=== PATIENT | male | born 1930 | race Caucasian/White ===

== ENCOUNTER 2016-11-04 15:14 | Outpatient (CLI) ==
--- NOTE | 2016-11-04 16:06 | DI ---
EXAM: Lumbar spine three view with flexion and extension HISTORY: Lumbar facet arthropathy COMPARISON: None TECHNIQUE: Three lateral views lumbar spine were performed in neutral position and with flexion and extension FINDINGS: The vertebral bodies normal in height. No fracture visualized. Multilevel marginal oste ophyte formation. Multilevel intervertebral disc space narrowing, moderate to severe at L4-L5 and s evere at L5-S1. Advanced multilevel facet arthrosis. 3 mm retrolisthesis of L3 on L4, unchanged wi th flexion and extension. Atherosclerotic vascular calcification. IVC filter. Hip arthroplasty no stepan. 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 3 mm retrolisthe sis of L3 on L4. No segment instability.
== END 2016-11-04 15:15 | disposition home or self-care (01) ==
LOC: RAD 15:14
PROVIDERS: ATTEND Nurse Practitioner Family
DX: M12.88 Other specific arthropathies, not elsewhere classified, other specified site (principal)

== ENCOUNTER 2017-04-06 08:48 | Outpatient (CLI) ==
[2017-04-06 09:13] LABS: BASOPHILS % (AUTO) 0.6 % (0.0-3.0); EOSINOPHILS # (AUTO) 0.2 K/ul (0.0-0.7); EOSINOPHILS % (AUTO) 3.1 % (0.0-7.0); HEMATOCRIT 31.1 % (42.0-52.0); HEMOGLOBIN 10.6 g/dl (14.0-18.0); IMMATURE GRANULOCYTE % (AUTO) 0.2 % (0.0-5.0); LYMPHOCYTES # (AUTO) 1.5 K/uL (0.60-3.4); LYMPHOCYTES % (AUTO) 27.3 (10.0-50.0); MEAN CORPUSCULAR HEMOGLOBIN 32.2 pg (27.0-31.0); MEAN CORPUSCULAR HGB CONC 34.1 (31.8-35.4); MEAN CORPUSCULAR VOLUME 94.5 fl (80.0-94.0); MONOCYTES # (AUTO) 0.8 K/uL (0.4-2.0); MONOCYTES % (AUTO) 15.3 (0-10); NEUTROPHILS # (AUTO) 2.9 K/ul (2.0-6.9); NEUTROPHILS % (AUTO) 53.5; PLATELET COUNT 179 10^3/uL (140-440); RED BLOOD COUNT 3.29 10^6/ul (4.70-6.10); WHITE BLOOD COUNT 5.43 K/ul (4.2-10.2)
[2017-04-06 09:28] LABS: ALBUMIN 3.4 g/dL (3.4-5.0); BILIRUBIN,TOTAL 0.52 mg/dL (0.00-1.20); BUN/CREATININE RATIO 21.35; CALCIUM 11.5 mg/dL (8.2-10.2); CREATININE 2.06 mg/dL (0.60-1.10); TOTAL PROTEIN 6.8 g/dL (5.8-8.1)
--- NOTE | 2017-04-06 09:40 | CT ---
EXAM: CT of the abdomen pelvis without contrast History: Rectal bleeding. Technique: Multiplanar CT images through the abdomen pelvis were obtained without the administration of IV contrast Findings: Coronary calcifications. Subsegmental atelectasis seen within the lower lungs. No acute osseous abnormalities. Left hip arthroplasty hardware. Osteopenia. Degenerative changes of the spi ne which are severe in the lower lumbar spine. Cholelithiasis. Adrenal glands are unremarkable. No peripancreatic inflammation. IVC filter seen i n place. Atherosclerotic vascular calcifications. No obvious splenic or liver lesions identified wi thin limitations of a noncontrast study. No renal stones and no hydronephrosis. No bowel obstructio n. No bladder wall thickening. Prostate is not enlarged. Colonic diverticulosis. No free air. No ascites. The appendix is not dilated or inflamed. No perirectal inflammation. Impression: 1. No acute intra-abdominal or pelvic process. 2. Colonic diverticulosis. 3. Cholelithiasis. 4. Atherosclerotic vascular disease. 5. Coronary artery disease.
== END 2017-04-06 08:49 | disposition home or self-care (01) ==
LOC: RAD 08:48
PROVIDERS: ATTEND Internal Medicine
DX: K62.5 Hemorrhage of anus and rectum (principal); D64.9 Anemia, unspecified
CPT/HCPCS: 36415; 80053; 85025

== ENCOUNTER 2017-07-16 22:22 | Emergency (ER) ==
--- NOTE | 2017-07-16 22:38 | ED.PDOC ---
General ED Provider: Dr. JERROD COURTNEY Chief Complaint: Fall Stated Complaint: patient had a fall at the alf with injuries to the head, face, right shoulder, hips, right hand and eblows. states that the pain is tollorable Time Seen by Physician: 22:35 Information Source: Patient Exam Limitations: No limitations Primary Care Provider: MARIAH HARRISON Nursing and Triage Documentation Reviewed and Agree: Yes Reviewed sepsis parameters & appropriate labs ordered?: Yes System Inflammatory Response Syndrome: Not Applicable Sepsis Protocol: For patient's 13 years and over: Temp is 96.8 and below OR 101 and greater Pulse >90 BPM Resp >20/minute Acutely Altered Mental Status Are patient's symptoms suggestive of a new infection, such as: -Pneumonia -Skin, Soft Tissue -Endocarditis -UTI -Bone, Joint Infection -Implantable Device -Acute Abdominal Infection -Wound Infection -Meningitis -Blood Stream Catheter Infection -Unknown System Inflammatory Response Syndrome: Not Applicable Trauma/Injury Complaint Exam - Trauma Complaint/Exam Location of Pain or Injury: Reports: Face, Neck, RUE, LUE Mechanism of Injury: Reports: Fall Onset/Duration: 1 hour Symptoms Are: Still present Timing of Treatment: Immediate Initial Severity: Moderate Current Severity: Moderate Character: Reports: Aching Aggravating: Reports: Movement Associated Signs and Symptoms: Reports: Bruising. Denies: LOC, Confusion, Memory loss, Lethargy, Vomiting, Bleeding, Swelling, Extremity disuse, Painful respiration, Hoarseness, Dysphagia, Hemoptysis, Significant blood loss Nexus Low Risk Criteria: No post-midline CS tender, No evidence of intoxicat., No Altered LOC, No focal neuro deficit, No distracting injuries Glascow Coma Scale (see protocol): 15 Compartment Syndrome Risk Factors: Present: Pain Trauma Findings: Present: Neck tenderness, Neck spasm, Limited ROM (on the right hand ) Skin Findings: Present: Abrasion (with steri strips placed at the NH ) Differential Diagnoses: Abrasion, Contusions, Hematoma Review of Systems - Review Of Systems Constitutional: Reports: No symptoms Eyes: Reports: No symptoms Ears, Nose, Mouth, Throat: Reports: No symptoms Respiratory: Reports: No symptoms Cardiac: Reports: No symptoms. Denies: Chest pain GI: Reports: No symptoms : Reports: No symptoms Musculoskeletal: Reports: Back pain, Neck pain Skin: Reports: Bruising Neurological: Reports: Anxiety Endocrine: Reports: No symptoms Hematologic/Lymphatic: Reports: No symptoms All Other Systems: Reviewed and Negative Past Medical History - Past Medical History Endocrine: Reports: Dyslipidemia Cardiovascular: Reports: CAD, Hypertension, A-Fib Respiratory: Reports: PE Hematological: Reports: None Gastrointestinal: Reports: None Genitourinary: Reports: None Neuro/Psych: Reports: CVA Musculoskeletal: Reports: Arthritis, Back Pain Cancer: Reports: None Other Pertinent Past Medical History: Sleep APnea, hypoglycemia - Surgical History General Surgical History: Reports: CABG, Orthopedic (Left hip replacement), Other (TURP, vascular surgery) - Family History Family History: Reports: Unknown - Social History Smoking Status: Heavy tobacco smoker Hx Substance Use: No Lives: In Assisted Physical Exam - Physical Exam Appearance: Well-nourished Ill-appearing: Moderate Pain Distress: Mild Eyes: ANAI, EOMI, Conjunctiva clear Respiratory: Airway patent, Breath sounds clear, Breath sounds equal, Respirations nonlabored GI/: Soft, Nontender, No masses, Bowel sounds normal, No Organomegaly Musculoskeletal: No edema, No calf tenderness, Limited ROM (right shoulder and right eblow ) Skin: Warm, Dry Neurological: Cranial nerves intact, Alert, Oriented Psychiatric: Anxious Interpretation - Radiology Interpretation Radiology Interpretation By: Radiologist Radiology Results: Negative Exam Interpreted: CT Scan (head, cervical spine, chest abdomen and pelvis. ) Radiology Interpretation By: Radiologist Radiology Results: Negative Exam Interpreted: Other (bilateral elbow) Critical Care Note - Critical Care Note Total Time (mins): 0 Course - Course Orders, Labs, Meds: Orders Category Date Time Status Diphth,Pertuss(Acell),Tet Vac [Boostrix] MEDS 07/16/17 23:51 Discontinued 0.5 ml IM .ONCE ONE CT ABDOMEN/PELVIS WO CONTRAST Stat RADS 07/16/17 22:[address] CERVICAL SPINE W/O CONTRAST Stat RADS 07/16/17 22:[address] CHEST W/O CONTRAST Stat RADS 07/16/17 22:[address] HEAD W/O CONTRAST Stat RADS 07/16/17 22:[address] MAXILLOFACIAL W/O CONTRAST Stat RADS 07/16/17 22:36 Completed ELBOW, LEFT MIN 3 VIEWS Stat RADS 07/16/17 22:33 Completed ELBOW, RIGHT MIN 3 VIEWS Stat RADS 07/16/17 22:33 Completed HAND, RIGHT 3 VIEWS Stat RADS 07/16/17 22:33 Taken Medications Discontinued Medications Generic Name Dose Route Start Last Admin Trade Name Syed PRN Reason Stop Dose Admin Diphtheria/Pertussis/Tetanus Vacc 0.5 ml 07/16/17 23:51 07/16/17 23:56 Boostrix IM 07/16/17 23:52 0.5 ml .ONCE ONE Administration Vital Signs: Temp Pulse Resp BP Pulse Ox 07/16/17 22:23 100.3 F H 81 18 160/77 H 98 Departure - Departure Time of Disposition: 00:09 Disposition: HOME SELF-CARE Discharge Problem: Falls, Abrasion of skin Sprain of shoulder, right Qualifiers: Encounter type: initial encounter Shoulder sprain type: other part of shoulder region Qualified Code(s): S43.491A - Other sprain of right shoulder joint, initial encounter Elbow injury Qualifiers: Encounter type: initial encounter Laterality: left Qualified Code(s): S59.902A - Unspecified injury of left elbow, initial encounter Head injury Qualifiers: Encounter type: initial encounter Qualified Code(s): S09.90XA - Unspecified injury of head, initial encounter Instructions: Head Injury (ED), Tdap and Td Vaccines in Adults (ED), Shoulder Sprain (ED), Abrasion (ED) Condition: Stable Pt referred to PMD for follow-up: Yes IPMP verified?: No Additional Instructions: Take home pain medications as needed for pain Follow up with PCP in 3 days Allergies/Adverse Reactions: Allergies diazepam [From Valium] Adverse Reaction (Verified 07/16/17 22:48) hydrocodone Adverse Reaction (Verified 07/16/17 22:48) PAPER TAPE Adverse Reaction (Uncoded 07/16/17 22:48) Home Medications: Ambulatory Orders Amoxicillin 500 mg PO TID 07/16/17 Apixaban [Eliquis] 5 mg PO BID 07/16/17 Docusate Sodium 100 mg PO BID 07/16/17 Ferrous Sulfate 325 mg PO TID 07/16/17 Furosemide 20 mg PO DAILY 07/16/17 Metoprolol Tartrate 25 mg PO BID 07/16/17 Multivitamin [Multi-Vitamin Daily] 1 each PO DAILY 07/16/17 Pantoprazole Sodium 40 mg PO DAILY 07/16/17 Polyethylene Glycol 3350 [Miralax] 17 gm PO DAILY 07/16/17 Potassium Chloride [K-Tab ER] 10 meq PO DAILY 07/16/17 Pravastatin Sodium [Pravachol] 40 mg PO DAILY 07/16/17 Quetiapine Fumarate [Seroquel] 25 mg PO BEDTIME 07/16/17 Tramadol HCl 50 mg PO DIRECTED 07/16/17 Tramadol HCl 100 mg PO DAILY 07/16/17 Tramadol HCl [Ultram] 50 mg PO BEDTIME 07/16/17 Disposition Discussed With: Patient, Family
[2017-07-16 22:44] VITALS: BP 160/77; BMI 25.9
--- NOTE | 2017-07-16 23:25 | CT ---
EXAM: CT scan brain without contrast HISTORY: Fall COMPARISON: None. FINDINGS: Contiguous axial images obtained from the skull base to the convexities without contrast u tilizing 5-mm collimation. Sagittal and coronal reconstructions were imaged and reviewed.. The vent ricles and CSF spaces are prominent compatible with age appropriate atrophy. There is moderate periv entricular hypodensity noted compatible with chronic microvascular disease. There is a remote lacuna r infarct within the right caudate head. Atherosclerotic changes are seen involving the bilateral ve rtebral and cavernous internal carotid arteries. There is opacification of the right maxillary sinus . Mastoid air cells are clear. The calvarium is intact. IMPRESSION: Age appropriate atrophy with chronic microvascular disease. ASVD. Benign sinus disease.
--- NOTE | 2017-07-16 23:28 | CT ---
EXAM: CT scan facial bones HISTORY: Fall COMPARISON: None. FINDINGS: Contiguous axial images obtained through the facial bones without contrast utilizing 3-mm collimation. Sagittal and coronal reconstructions were imaged and reviewed.. The orbital structures are intact. The right maxillary sinus is opacified. There is no acute fracture or bony abnormality .. The mandible and maxilla are edentulous. There is no evidence of a mandibular fracture . IMPRESSION: No acute findings.
[2017-07-16 23:29] VITALS: TEMP 100.3
--- NOTE | 2017-07-16 23:30 | CT ---
EXAM: CT cervical spine without intravenous contrast 07/16/2017. Sagittal and coronal reformatted i mages obtained HISTORY: Fall. Neck pain COMPARISON: None. FINDINGS: Normal anatomic alignment is maintained. Vertebral bodies appear intact without fracture. The facet joints align normally. The prevertebral soft tissues appear within normal limits. Multilevel chronic degenerative disc disease throughout the cervical spine. There is no evidence of acute fracture or subluxation at any level. IMPRESSION: Chronic degenerative changes of the cervical spine. No acute post traumatic osseous abn ormality.
--- NOTE | 2017-07-16 23:34 | CT ---
EXAM: CT scan thorax without contrast HISTORY: Fall COMPARISON: None. FINDINGS: Contiguous axial images obtained through the thorax without contrast utilizing 5-mm collim ation. Sagittal and coronal reconstructions were imaged reviewed.. The thoracic inlet is unremarkab le. The ascending aorta is ectatic measuring 3.8 cm. Sternal wire sutures noted from previous CABG. Heart is normal in size with left atrial prominence. There is no pericardial effusion.. There is a trace left pleural effusion with bibasilar atelectasis.. There is thickening of the lateral aspect of the major fissure superiorly on the right. There is minimal ground-glass opacity within the left upper lobe which may be related to atelectasis or contusion.. There are old healed right-sided rib fractures. Multiple gallstones are seen within the gallbladder.. Moderate degenerative changes are s een within the thoracic spine. There is mild thoracic dextroscoliosis. IMPRESSION: Trace left pleural effusion with bibasilar atelectasis and ground-glass opacity left upper lobe.. Prior mediastinotomy. Ectatic ascending aorta. Cholelithiasis
--- NOTE | 2017-07-16 23:35 | DI ---
EXAM: Right elbow three views HISTORY: Trauma COMPARISON: None. FINDINGS: There is no acute fracture or joint effusion.. Mild degenerative changes are noted about the coronoid process. IMPRESSION: No acute findings.
--- NOTE | 2017-07-16 23:36 | DI ---
EXAM: Left elbow three views HISTORY: Trauma COMPARISON: None. FINDINGS: There is an olecranon spur. There is no acute fracture or joint effusion. IMPRESSION: No acute findings.
--- NOTE | 2017-07-16 23:39 | CT ---
EXAM: CT abdomen pelvis without intravenous contrast 07/16/2017. Sagittal and coronal reformatted i mages obtained HISTORY: Fall. Hip pain COMPARISON: 04/06/2017 FINDINGS: The liver and gallbladder show no acute abnormality. There are multiple gallstones. The adrenal glands and kidneys show no acute process. No hydronephrosis. The spleen and pancreas show no acute abnormality. No bowel obstruction. Atherosclerotic vascular disease. Inferior vena cava filter is in place. Unremarkable urinary bladder. Streak artifacts secondary to left hip prosthesis partially obscures the pelvis. No acute osseous abnormality. Left arthroplasty well positioned. Bony fragments adjacent to the left hip appear chronic and stable. The right hip appears intact. IMPRESSION: 1. Gallstones. 2. Severe atherosclerotic vascular disease. 3. Inferior vena cava filter is in place. 4. Chronic degenerative disc disease. Severe spinal and neural foraminal narrowing at L4-L5. 5. Left hip arthroplasty is in place. No acute fracture identified.
[2017-07-16] MEDS ORDERED: BOOSTRIX IM ONE (23:51)
--- NOTE | 2017-07-17 07:31 | DI ---
EXAM: Right hand three views HISTORY: Pain after trauma. FINDINGS: No comparison. Bones are demineralized which limits this exam. No displaced fracture is id entified. There is diffuse mild to moderate arthropathy probably most apparent at the first carpal-m etacarpal joint. Joints are intact. No dislocation or subluxation. Soft tissue mass is suggested l ateral to the distal first metacarpal which may be related to the arthropathy and measures about 1.4 cm. IMPRESSION: No acute findings.
== END 2017-07-17 00:42 | disposition home or self-care (01) ==
LOC: ED 22:22
DX: S43.491A Other sprain of right shoulder joint, initial encounter (principal); S59.902A Unspecified injury of left elbow, initial encounter; S09.90XA Unspecified injury of head, initial encounter; S69.91XA Unspecified injury of right wrist, hand and finger(s), initial encounter; S79.912A Unspecified injury of left hip, initial encounter; S79.911A Unspecified injury of right hip, initial encounter; M54.2 Cervicalgia; M54.9 Dorsalgia, unspecified; W19.XXXA Unspecified fall, initial encounter; Y92.129 Unspecified place in nursing home as the place of occurrence of the external cause
CPT/HCPCS: 90471; 90715; 99283

== ENCOUNTER 2017-11-24 14:33 | Outpatient (CLI) ==
--- NOTE | 2017-11-24 15:58 | US ---
EXAM: Bilateral carotid artery Doppler History: Carotid stenosis. Technique: Multiple sonographic images through the bilateral internal carotid arteries were obtained . Color duplex Doppler was used to interrogate vascular flow. Findings: The right ICA peak systolic velocity is within normal limits measuring 70 cm/sec. The right ICA/cca P SV ratio is upper limits of normal at 1.9. Right vertebral artery was not seen. Price scale images d emonstrate mild to moderate plaque buildup within the right internal carotid artery. The right inter nal carotid artery is tortuous. The left ICA peak systolic velocity is moderately elevated measuring 140 cm/sec. The left ICA/cca PS V ratio is moderately increased at 2.3. The left vertebral artery is patent and demonstrates antegra de flow. Price scale images demonstrate moderate heterogeneous plaque buildup. Impression: 1. 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 2. No significant hemodynamic stenosis of the right internal carotid artery.
== END 2017-11-24 14:34 | disposition home or self-care (01) ==
LOC: RAD 14:33
PROVIDERS: ATTEND Internal Medicine
DX: I65.23 Occlusion and stenosis of bilateral carotid arteries (principal)

== ENCOUNTER 2018-11-20 12:50 | Outpatient (CLI) ==
--- NOTE | 2018-11-20 15:25 | US ---
EXAM: Bilateral carotid artery Doppler History: Dizziness. Comparison: Carotid Doppler 11/24/2017 Technique: Multiple sonographic images through the bilateral internal carotid arteries were obtained . Color duplex Doppler was used to interrogate vascular flow. Findings: The right ICA peak systolic velocity is within normal limits measuring 59 cm/sec. The right ICA/cca PSV ratio is normal at 0.90. The right vertebral artery is patent and demonstrates antegrade flow. Price scale images demonstrate mild to moderate plaque buildup within the right internal carotid arter y. The left ICA peak systolic velocity is moderately elevated measuring 142 cm/sec similar to the prior study. The left ICA/cca PSV ratio is moderately increased at 2.0. The left vertebral artery is kaufman nt and demonstrates antegrade flow. Price scale images demonstrate moderate plaque buildup within the left internal carotid artery. Evaluation was difficult due to shadowing calcific plaque. Impression: 1. 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 2. No significant hemodynamic stenosis of the right internal carotid artery. 3. Evaluation was difficult due to shadowing calcific plaque. Consider correlation with a CTA of th e neck for more accurate measurements.
== END 2018-11-20 12:51 | disposition home or self-care (01) ==
LOC: RAD 12:50
PROVIDERS: ATTEND Internal Medicine
DX: R42 Dizziness and giddiness (principal)

== ENCOUNTER 2019-08-06 | Inpatient (IN) ==
--- NOTE | 2019-08-06 00:30 | CT ---
EXAM: CT brain without contrast HISTORY: Fall TECHNIQUE: CT of the brain without intravenous contrast FINDINGS: There is no acute hemorrhage midline shift or mass effect. No hydrocephalus or abnormal e xtra-axial fluid collection. Generalized involutional atrophy, moderate. Chronic microvascular henao ges of the white matter tracts, moderate. Prior right caudate small vessel lacunar infarct. The bon y cranium appears normal. Complete opacification of the right maxillary sinus. Remainder of the vis ualized paranasal sinuses are clear. Soft tissues without significant abnormality. IMPRESSION: 1. Chronic changes as described. No acute intracranial abnormality is seen.
--- NOTE | 2019-08-06 00:43 | CT ---
EXAM: CT scan cervical spine HISTORY: Fall COMPARISON: CT scan cervical spine 07/16/2017 FINDINGS: Contiguous axial images obtained through the cervical spine utilizing 2-mm collimation. S agittal and coronal reconstructions were imaged and reviewed.. There is 2.1 mm anterolisthesis C4/C5 . There is 3.5 mm anterolisthesis C7/T1 the. There is multilevel degenerative disc disease.. There is no acute fracture or listhesis. There is facet arthropathy with multilevel central canal and fora mckayla stenosis. IMPRESSION: No acute findings.
[2019-08-06 00:44] LABS: HEMATOCRIT 45.1 % (42.0-52.0)
--- NOTE | 2019-08-06 00:44 | CT ---
Exam: CT of the chest without contrast History: Fall, dyspnea Technique: [address] of the chest without contrast FINDINGS: Small bilateral pleural effusions, left greater than right. There is no pneumothorax. No mediastinal lymph node enlargement. Atherosclerotic calcification of the aorta. Maximum thoracic a ryan diameter 3.9 cm in the ascending segment. Prior mediastinotomy. No acute chest wall abnormalit y. Prior healed rib fractures on the right. No acute findings of the upper abdomen. Distended gall bladder with cholelithiasis noted. Possible cystic duct calculi as well. Inferior vena cava filter in place. Impression: 1. Small pleural effusions are nonspecific 2. No acute post traumatic change of the chest is seen 3. Distended gallbladder with cholelithiasis 4. Ascending thoracic aorta 3.9 cm
--- NOTE | 2019-08-06 00:46 | CT ---
EXAM: CT scan facial bones HISTORY: Trauma COMPARISON: None. FINDINGS: Contiguous axial images obtained the facial bones utilizing 3-mm collimation. Sagittal an d coronal reconstructions were imaged and reviewed. The orbital structures are intact. There is opa cification of the right maxillary sinus. Atherosclerotic changes are seen involving the cavernous in ternal carotid arteries. There is no acute fracture or bony abnormality. The mandible is intact. T he mandible and maxilla are edentulous. IMPRESSION: No acute findings
--- NOTE | 2019-08-06 01:15 | ED.PDOC ---
General ED Provider: Dr. DOTTY BROWN Chief Complaint: Fall Stated Complaint: he fell at home due to fact his legs are swollen and he is sob Time Seen by Physician: 01:15 Mode of Arrival: Ambulance Information Source: Patient Primary Care Provider: MARIAH CHOPRA Nursing and Triage Documentation Reviewed and Agree: Yes Does patient meet sepsis criteria?: No System Inflammatory Response Syndrome: Not Applicable Sepsis Protocol: For patient's 13 years and over: Temp is 96.8 and below OR 101 and greater Pulse >90 BPM Resp >20/minute Acutely Altered Mental Status Are patient's symptoms suggestive of a new infection, such as: -Pneumonia -Skin, Soft Tissue -Endocarditis -UTI -Bone, Joint Infection -Implantable Device -Acute Abdominal Infection -Wound Infection -Meningitis -Blood Stream Catheter Infection -Unknown Respiratory Complaint Exam Respiratory Complaint/Exam Onset/Duration: one week Symptoms Are: Still present Initial Severity: Mild Current Severity: Mild Character: Reports Non-productive cough Aggravating: Reports URI Alleviating: Reports None Associated Signs and Symptoms: Reports Edema Home Oxygen Use: No Recent Stress Test: No Recent Echo/LV Function: No Current Antibiotic Use: No Current Asthma Medication Use: No Respiratory Distress: None Inadequate Respiratory Effort: No Dysphagia Present: No Stridor Present: No JVD Present: No Accessory Muscle Use: No Retractions: Not Present Diminished Breath Sounds: No Sinus Tenderness: None Grunting Respirations: No Kussmaul Respirations: No Differential Diagnoses: Pulmonary Edema Non-Traumatic Chest Pain Syncope: EKG Performed Review of Systems Review Of Systems Constitutional: Reports No symptoms Eyes: Reports No symptoms Ears, Nose, Mouth, Throat: Reports No symptoms Respiratory: Reports Short of air Cardiac: Reports No symptoms and Irregular heart rate GI: Reports No symptoms : Reports No symptoms Musculoskeletal: Reports No symptoms Skin: Reports No symptoms Neurological: Reports No symptoms Endocrine: Reports No symptoms Hematologic/Lymphatic: Reports No symptoms All Other Systems: Reviewed and Negative [facility] Social History Smoking and tobacco status: Former smoker Physical Exam Physical Exam Appearance: Reports Well-appearing Ill-appearing: None Pain Distress: None Eyes: Reports NAAI, EOMI and Conjunctiva clear ENT: Reports Ears normal, Nose normal and Oropharynx normal Neck: Supple Respiratory: Reports Airway patent, Breath sounds clear and Breath sounds equal Cardiovascular: Reports Pulses normal and Irregular rhythm GI/: Reports Soft, Nontender and No masses Musculoskeletal: Reports Normal strength, ROM intact and Edema Skin: Reports Warm, Dry and Normal color Neurological: Reports Sensation intact, Motor intact, Reflexes intact, Cranial nerves intact, Alert and Oriented Psychiatric: Reports Affect appropriate, Mood appropriate and Anxious Interpretation Radiology Interpretation Radiology Interpretation By: Radiologist Radiology Results: Positive Exam Interpreted: CT Scan EKG Interpretation Time of EKG #1: 01:13 Rate: Normal Rhythm: Sinus Ectopy: None [place]: NL ST Segment: Normal Interpretation: atrial fib Physician Notification Case Discussed Physician Notified: dr chopra Time of Notification: 01:14 Critical Care Note Critical Care Note Total Time (mins): 0 Course Course Hematology/Chemistry: 08/06/19 00:40 08/06/19 00:40 Orders, Labs, Meds: Lab Review 08/06/19 08/06/19 00:40 00:40 WBC 4.29 RBC 4.32 L Hgb 14.2 Hct 45.1 MCV 104.4 H MCH 32.9 H MCHC 31.5 L RDW Coeff of Domitila 13.6 Plt Count 86 L Immature Gran % (Auto) 0.2 Neut % (Auto) 53.2 Lymph % (Auto) 28.7 Graham % (Auto) 14.9 H Eos % (Auto) 2.1 Baso % (Auto) 0.9 Immature Gran # (Auto) 0.0 Neut # (Auto) 2.3 Lymph # (Auto) 1.2 Graham # (Auto) 0.6 Eos # (Auto) 0.1 Baso # (Auto) 0.0 Sodium 142.4 Potassium 4.54 Chloride 103.6 Carbon Dioxide 32.3 H Anion Gap 11.04 BUN 28.6 H Creatinine 1.50 H Estimated GFR (MDRD) 44.00 BUN/Creatinine Ratio 19.06 Glucose 120.2 H Calcium 11.44 H Total Bilirubin 0.89 AST 36.7 ALT 15.7 Alkaline Phosphatase 154.4 H NT-Pro-B Natriuret Pep Pending Total Protein 7.60 Albumin 4.13 Globulin 3.47 Albumin/Globulin Ratio 1.19 TSH Pending Orders Category Date Time Status ABG DRAW REQUEST Stat CARDIO 08/06/19 00:57 Ordered EKG-(ED ONLY) Stat CARDIO 08/06/19 00:04 Completed ED ROOMING HOUSE OPERATOR APPLIED .ONCE EMERGENCY 08/06/19 00:04 Active ABG Stat LAB 08/06/19 00:57 Ordered CBC W/ AUTO DIFF Stat LAB 08/06/19 00:40 Completed COMPREHENSIVE METABOLIC PANEL Stat LAB 08/06/19 00:40 Results NT-PROBNP Stat LAB 08/06/19 00:40 Results THYROID STIMULATING HORMONE Stat LAB 08/06/19 00:[address] CERVICAL SPINE W/O CONTRAST Stat RADS 08/06/19 00:[address] CHEST W/O CONTRAST Stat RADS 08/06/19 00:[address] HEAD W/O CONTRAST Stat RADS 08/06/19 00:[address] MAXILLOFACIAL W/O CONTRAST Stat RADS 08/06/19 00:21 Completed Vital Signs: Temp Pulse Resp BP Pulse Ox 08/06/19 00:35 97.4 F L 89 20 191/101 H 94 L Discharge Plan Discharge Patient Disposition: ADMITTED INPATIENT Discharge Problem: Acute respiratory failure Prescriptions: No Action multivitamin [Daily Multi-Vitamin] 1 EACH tablet 1 ea PO DAILY RF: 0 quetiapine [Seroquel] 25 MG tablet 25 mg PO BEDTIME RF: 0 polyethylene glycol 3350 [Miralax] 17 GM powder in packet 17 g PO DAILY RF: 0 pravastatin [Pravachol] 40 MG tablet 40 mg PO BEDTIME RF: 0 tramadol 50 MG tablet 50 mg PO QID RF: 0 ferrous sulfate 325 MG tablet 325 mg PO DAILY RF: 0 docusate sodium 100 MG capsule 100 mg PO DAILY RF: 0 furosemide 20 MG tablet 20 mg PO DAILY RF: 0 metoprolol tartrate 25 MG tablet 25 mg PO BID RF: 0 Eliquis 5 MG tablet 5 mg PO BID RF: 0 potassium chloride [Klor-Con M20] 20 mEq Tablet,Er Particles/Crystals 20 meq PO DAILY RF: 0 omeprazole 20 mg Tablet,Delayed Release (Dr/Ec) 20 mg PO DAILY RF: 0 ED Provider: DOTTY BROWN Condition: Fair
[2019-08-06] MEDS ORDERED: LASIX IVP STA (01:23)
[2019-08-06 02:42] VITALS: BMI 24.6
[2019-08-06 05:34] LABS: HEMATOCRIT 44.8 % (42.0-52.0)
[2019-08-06] MEDS: LASIX IVP SCH (07:13)
[2019-08-06] MEDS: PRILOSEC PO SCH (07:14)
[2019-08-06] MEDS ORDERED: NON-FORMULARY MEDICATION (Ferrous Sulfate 325 MG) PO SCH (09:00)
--- NOTE | 2019-08-06 09:15 | PCM.PROG ---
Attending Provider: ATTENDING PROVIDER: Dr. MARIAH HARRISON This patient is seen with Simin Prince, Nurse Practitioner. DATE OF SERVICE: 08/06/19 SUBJECTIVE: This 88 year old /WHITE M was hospitalized 08/06/19. The patient is resting comfortably. Heart rate into the 40s while sleeping, asymptomatic. He has 1800cc out since receiving IV Lasix in ER. REVIEW OF SYSTEMS: CONSTITUTIONAL: No night sweats. No fatigue, malaise, lethargy. No fever or chills. Weakness. HEENT: Eyes: No visual changes. No eye pain. No eye discharge. ENT: No runny nose. No epistaxis. No sinus pain. No odynophagia. No congestion. RESPIRATORY: No cough, no congestion. No hemoptysis. No shortness of breath. CARDIOVASCULAR: No angina symptoms. No CHF symptoms. No atypical chest pain for CAD. No palpitations. No orthopnea.. GASTROINTESTINAL: No abdominal pain. No nausea or vomiting. No diarrhea or constipation. No hematemesis. No hematochezia. GENITOURINARY: No urgency. No frequency. No dysuria. No hematuria. No obstructive symptoms. No discharge. No pain. No significant abnormal bleeding. MUSCULOSKELETAL: No musculoskeletal pain; no joint swelling. NEUROLOGICAL: Awake, alert, confused. No headache. No neck pain. No syncope. No seizures. No dizziness. PSYCHIATRIC: Not anxious. No depression. No suicidal thoughts. No homicidal thoughts. SKIN: No rash. No lesions. No wounds. leg edema. ENDOCRINE: No unexplained weight loss. No weight gain. HEMATOLOGIC/LYMPHATIC: No anemia. No purpura. No petechiae. No prolonged or excessive bleeding. No palpable lymph nodes. PHYSICAL EXAMINATION: GENERAL: The patient is awake, alert and oriented, lying in bed in no distress. VITAL SIGNS: Temperature 97.7 F, Pulse 68, Respiratory Rate 20, BP 192/91, Pulse Ox 98% HEENT: Head normocephalic, atraumatic. Eyes: Extraocular muscles are intact. Pupils are equal, round and reactive to light and accommodation. Ears: No lesions. Nose appeared normal. Throat: No exudate or erythema. NECK: Supple. No JVD, no carotid bruit. No lymphadenopathy or thyromegaly. LUNGS: Diminished breath sounds. Clear to auscultation. Percussion note normal. Chest symmetrical. HEART: S1, S2, no S3. No murmurs. No cyanosis or clubbing. No ascites. Pulses: Dorsalis pedis and posterior tibial pulses +1 to +2 both sides. ABDOMEN: Soft. Non-tender. Bowel sounds active. No CVA tenderness. No mass felt. EXTREMITIES: +2 bilateral lower extremity edema. Full range of motion of all extremities, equal. NEUROLOGIC: No focal deficit. Cranial nerves II through XII are grossly intact. No headache, no double vision or headache. SKIN: Not dry. Intact. Turgor-normal. LYMPHATIC: No palpable lymph nodes/no lymphedema. MUSCULOSKELETAL: Normal joints with no swelling. Muscle tone is normal. LAB REVIEW: 08/06/19 04:46 08/06/19 04:46 08/06/19 04:46: Sodium 143.6, Potassium 3.71, Chloride 102.5, Carbon Dioxide 33.1 H, Anion Gap 11.71, BUN 27.7 H, Creatinine 1.45 H, Estimated GFR (MDRD) 46.00, BUN/Creatinine Ratio 19.10, Glucose 116.6 H, Calcium 11.43 H, Total Bilirubin 0.83, AST 31.4, ALT 16.6, Alkaline Phosphatase 145.0 H, Total Protein 7.61, Albumin 4.16, Globulin 3.45, Albumin/Globulin Ratio 1.20 08/06/19 04:46: WBC 5.11, RBC 4.32 L, Hgb 14.2, Hct 44.8, MCV 103.7 H, MCH 32.9 H, MCHC 31.7 L, RDW Coeff of Domitila 13.6, Plt Count 97 L, Immature Gran % (Auto) 0.2, Neut % (Auto) 55.9, Lymph % (Auto) 28.0, Oliver % (Auto) 13.9 H, Eos % (Auto) 1.4, Baso % (Auto) 0.6, Immature Gran # (Auto) 0.0, Neut # (Auto) 2.9, Lymph # (Auto) 1.4, Oliver # (Auto) 0.7, Eos # (Auto) 0.1, Baso # (Auto) 0.0 08/06/19 00:57: Puncture Site Rrad, O2 Saturation 88.0 L, ABG pH 7.418, ABG pCO2 46.0 H, ABG pO2 54.0 L*, ABG HCO3 29.7 H, ABG Total CO2 31 H, ABG Base Excess 5 H, Clement Test +, FiO2 % 21.0 08/06/19 00:40: Sodium 142.4, Potassium 4.54, Chloride 103.6, Carbon Dioxide 32.3 H, Anion Gap 11.04, BUN 28.6 H, Creatinine 1.50 H, Estimated GFR (MDRD) 44.00, BUN/Creatinine Ratio 19.06, Glucose 120.2 H, Calcium 11.44 H, Total Bilirubin 0.89, AST 36.7, ALT 15.7, Alkaline Phosphatase 154.4 H, NT-Pro-B Natriuret Pep 70608.000 H, Total Protein 7.60, Albumin 4.13, Globulin 3.47, Albumin/Globulin Ratio 1.19, TSH 2.330 08/06/19 00:40: WBC 4.29, RBC 4.32 L, Hgb 14.2, Hct 45.1, MCV 104.4 H, MCH 32.9 H, MCHC 31.5 L, RDW Coeff of Domitila 13.6, Plt Count 86 L, Immature Gran % (Auto) 0.2, Neut % (Auto) 53.2, Lymph % (Auto) 28.7, Oliver % (Auto) 14.9 H, Eos % (Auto) 2.1, Baso % (Auto) 0.9, Immature Gran # (Auto) 0.0, Neut # (Auto) 2.3, Lymph # (Auto) 1.2, Oliver # (Auto) 0.6, Eos # (Auto) 0.1, Baso # (Auto) 0.0 ASSESSMENT: Please see below. 1. Acute respiratory failure 2. Acute CHF 3. History of atrial fibrillation 4. Chronic kidney disease 5. Dementia 6. Recent fall PLAN: 1. IV Lasix 2. Losartan 50mg BID 3. Will reconcile medications. . Plan and coordination of the patient's care discussed in the presence of Mechanical Engineering Technologist and nurse. SCRIBED BY: LYNDSEY RUIZ Continuity Writer scribed while in presence of service performed by Dr. Harrison/Simin rPince APRN on 08/06/19 ([id number])
[2019-08-06] MEDS: ULTRAM PO SCH ×4 (10:30→22:15)
[2019-08-06] MEDS: COLACE PO SCH (10:31)
[2019-08-06] MEDS: ELIQUIS PO SCH ×2 (10:32→22:15)
[2019-08-06] MEDS: FERROUS SULFATE PO SCH (10:34)
[2019-08-06] MEDS: K-DUR PO SCH (10:35)
[2019-08-06] MEDS: COZAAR PO SCH ×2 (10:35→22:16)
[2019-08-06] MEDS: MIRALAX PO SCH (10:36)
[2019-08-06] MEDS: LOPRESSOR PO SCH ×2 (10:37→23:01)
[2019-08-06] MEDS ORDERED: NORVASC PO STA (16:32)
[2019-08-06] MEDS: SEROQUEL PO SCH (22:15)
[2019-08-06] MEDS: PRAVACHOL PO SCH (22:15)
[2019-08-07 04:43] LABS: HEMATOCRIT 42.9 % (42.0-52.0)
[2019-08-07] MEDS: LASIX IVP SCH (05:47)
[2019-08-07] MEDS: PRILOSEC PO SCH (05:48)
[2019-08-07] MEDS: LOPRESSOR PO SCH ×2 (08:58→20:59)
[2019-08-07] MEDS: MIRALAX PO SCH (08:59)
[2019-08-07] MEDS: K-DUR PO SCH (09:04)
[2019-08-07] MEDS: ULTRAM PO SCH ×4 (09:04→20:58)
[2019-08-07] MEDS: COLACE PO SCH (09:04)
[2019-08-07] MEDS: FERROUS SULFATE PO SCH (09:04)
[2019-08-07] MEDS: ELIQUIS PO SCH ×2 (09:05→20:59)
[2019-08-07] MEDS: COZAAR PO SCH ×2 (09:05→20:58)
--- NOTE | 2019-08-07 09:11 | HP ---
DATE OF SERVICE: 08/06/19 HISTORY OF PRESENT ILLNESS: This is an 88-year-old male who presented to the ER after falling at home. He has been having worsening leg edema with shortness of breath and increased weakness. PAST MEDICAL HISTORY: Falls Generalized weakness Anemia Herpes Zoster Forgetfulness Bilateral pulmonary embolism Coronary artery disease Hypertension Chronic kidney disease, Stage 3 Sleep apnea with CPAP Leg edema Osteoarthritis of the knees Atrial fibrillation B12 deficiency Hypertension PAST SURGICAL HISTORY: Coronary artery bypass graft Left total knee repair REVIEW OF SYSTEMS: CONSTITUTIONAL: Weakness. No night sweats. No fatigue, malaise, lethargy. No fever or chills. HEENT: Eyes: No visual changes. No eye pain. No eye discharge. ENT: No runny nose. No epistaxis. No sinus pain. No sore throat. No odynophagia. No ear pain. No congestion. RESPIRATORY: No cough, no congestion. No hemoptysis. Positive for shortness of breath. CARDIOVASCULAR: No angina symptoms. No CHF symptoms. No atypical chest pain for CAD. No palpitations. No PND. No orthopnea. GASTROINTESTINAL: No abdominal pain. No nausea or vomiting. No diarrhea or constipation. No hematemesis. No hematochezia. GENITOURINARY: No urgency. No frequency. No dysuria. No hematuria. No obstructive symptoms. No discharge. No pain. No significant abnormal bleeding. MUSCULOSKELETAL: Leg swelling. NEUROLOGICAL: Confusion as usual. No headache. No neck pain. No syncope. No seizures. No dizziness. PSYCHIATRIC: Not anxious. No depression. No suicidal thoughts. No homicidal thoughts. SKIN: No rash. No lesions. No wounds. ENDOCRINE: No unexplained weight loss. No weight gain. HEMATOLOGIC/LYMPHATIC: No anemia. No purpura. No petechiae. No prolonged or excessive bleeding. No palpable lymph nodes. PERSONAL/FAMILY/SOCIAL HISTORY: He is and lives with his . He is a nonsmoker. MEDICATIONS: (HOME) Seroquel 25 mg p.o. bedtime Pravachol 40 mg p.o. bedtime Miralax 17 gm p.o. daily Metoprolol 25 mg p.o. b.i.d. Furosemide 20 mg p.o. daily Ferrous Sulfate 325 mg p.o. daily Docusate Sodium 100 mg p.o. daily Tramadol 50 mg p.o. q.i.d. Multivitamin one each p.o. daily Eliquis 5 mg p.o. b.i.d. Klor-Con 20 mEq p.o. daily Omeprazole 20 mg p.o. daily Flonase two spray intranasal daily ALLERGIES: DIAZEPAM, HYDROCODONE, (PAPER TAPE) PHYSICAL EXAMINATION: VITAL SIGNS: Temperature 97.4, pulse 89, respiratory rate 20, BP 191/101, pulse ox 94. HEENT: Head normocephalic, atraumatic. Eyes: Extraocular muscles are intact. Pupils are equal, round and reactive to light and accommodation. Ears: No lesions. Nose appeared normal. Throat: No exudate or erythema. NECK: Supple. No JVD, no carotid bruit. No lymphadenopathy or thyromegaly. LUNGS: Diminished breath sounds. Clear to auscultation. Percussion note normal. Chest symmetrical. HEART: Irregular heart rate. S1, S2, no S3. No murmur. No cyanosis or clubbing. No ascites. Pulses: Dorsalis pedis and posterior tibial pulses +1 - +2 bilaterally. ABDOMEN: Soft. Nontender. Bowel sounds active. No CVA tenderness. No mass felt. EXTREMITIES: +2 bilateral lower leg extremity edema. Full range of motion of all extremities, equal. NEUROLOGIC: Oriented to person and time as usual. No focal deficit. Cranial nerves II through XII are grossly intact. No headache, no double vision or headache. SKIN: Not dry. Intact. Turgor - normal. LYMPHATIC: No palpable lymph nodes/no lymphedema. MUSCULOSKELETAL: Normal joints with no swelling. Muscle tone is normal. LABS: Include ABGs on room air, pH 7.418, pc02 46, p02 54, BE of 5, HC03 29.7, TC02 31, 02 sat 88. Sodium 142.4, potassium 4.54, BUN 28.6, creatinine 1.50, AST 36.7, ALT 15.7, pro-BNP 11,300. White count 4.29, hematocrit 45.1, hemoglobin 14.2, platelets 86. CT scan of the facial bones impression was no acute findings. CT of the chest without - small pleural effusions are nonspecific. No acute posttraumatic change of the chest is seen; distended gallbladder with cholelithiasis; ascending thoracic aorta is 3.[address] scan of the cervical spine - no acute findings. CT of the brain without contrast - chronic changes as described in note. No acute intracranial abnormalities are seen. ASSESSMENT: 1. ACUTE RESPIRATORY FAILURE 2. ACUTE CHF 3. LEG EDEMA 4. ATRIAL FIBRILLATION 5. STATUS POST FALL 6. GENERALIZED WEAKNESS 7. CHRONIC KIDNEY DISEASE, STAGE 3 8. CORONARY ARTERY DISEASE 9. HYPERTENSION 10. HISTORY OF BILATERAL PULMONARY EMBOLI PLAN: 1. Admit. 2. Routine telemetry. 3. CBC, CMP daily. 4. Continue home medications. 5. 02, 1 to 2L nasal cannula as needed. 6. Lasix 40 mg IV daily. 7. Hold p.o. Lasix. 8. Elevate the legs. 9. 2D echo. 10. Regular diet. TIME SPENT: More than 70 minutes. MTDD
[2019-08-07] MEDS: ALDACTONE PO SCH ×2 (14:08→20:59)
--- NOTE | 2019-08-07 14:49 | RS.PTINEVL ---
Subjective - Patient information Date of Evaluation: 08/07/19 Date of Arrival on Unit: 08/06/19 Admitted From:: Home Diagnosis: CHF, acute resp failure, fall at home Usual Living Arrangement: With Spouse Home Environment: House, Stairs (few), Rail Medical History: Dementia, CHF, Arthritis Medical History Comments:: chronic kidney disease LATEX ALLERGY?: No Medications: see chart Subjective Information/ Patient Comments:: pt's states that pt required assist with ADL's however could amb with supervision with standard walker. States he has a lift chair but doesn't usually have to lift it. - Level of function Prior to this admission, the patient could do the following:: Partially Dependent Ambulation Current Level of Function: Partially Dependent Current Equipment Used at Home: walker Interventions - Objective Patient Orientation: Person Current Interventions: IV's, Oxygen, Telemetry Observation: pt with pitting edema BLE. Range of Motion - ROM Right Upper Extremity AROM: Moderate limitation (decreased shld flex) Left Upper Extremity AROM: Moderate limitation (decreased shld flex) Right Lower Extremity AROM: WFL's Left Lower Extremity AROM: WFL's Muscle Strength - Muscle Strength Right Upper Extremity Strength: Mild Weakness (shld flex 3-/5, elbow flex/ext 4- /5) Left Upper Extremity Strength: Mild Weakness (shld flex 3-/5, elbow flex/ext 4- /5) Right Lower Extremity Strength: Mild Weakness (hip flex 4-/5, knee flex/ext 4/5, ankle DF/PF 4/5) Left Lower Extremity Strength: Mild Weakness (hip flex 4-/5, knee flex/ext 4/5, ankle DF/PF 4/5) Sensation - Sensation Right Upper Extremity Sensation: Intact/Normal Left Upper Extremity Sensation: Intact/Normal Right Lower Extremity Sensation: Intact/Normal Left Lower Extremity Sensation: Intact/Normal Palpation Palpation Findings: None/Normal Balance - Sitting Balance and Reactions Static Sitting Balance: Fair Dynamic Sitting Balance: Poor Sitting Equilibrium Reactions: Delayed Left, Delayed Right Sitting Protective Reactions: Delayed Left, Delayed Right - Standing Balance and Reactions Static Standing Balance: Poor Dynamic Standing Balance: Poor Standing Equilibrium Reactions: Delayed Left, Delayed Right Standing Protective Reactions: Delayed Left, Delayed Right Functional Mobility - Bed Mobility Comments:: pt seen sitting in bedside chair. - Transfers Sit to Stand: Mod Assist, 1 person assist Stand to Sit: Min Assist, 1 person assist - Safety Awareness Safety Awareness: Poor DAMASO INDEX SCORE: n/a Ambulation - Ambulation Assistive Device Used: Rolling Walker Orthotic/Prosthetic Device: No Distance: 100ft Assistance needed with Ambulation: Min Assist Gait Deviations: Forward posture, Short stride, Deviates from path Ambulation Comments: pt requires assist with placement of rwx as well as step length Factors Affecting Ambulation: Decreased Balance, Weakness, Decreased Safety, Cognitive Status, Limited Endurance Treatment time - Time with patient Length of Evaluation: 19 Total treatment time: 23 Patient Education - Education Patient Education: Activity Modification, Education of Plan of Care Teaching Recipient: Patient, Family Teaching Methods: Discussion Comments: discussion regarding home situation as well as POC. Assessment - Assessment Problem List:: Decreased level of function, Requires training/education, Decreased safety/Risk of falls, Weakness, Cognitive status limits abilities Rehab Potential: Good Further Therapy Indicated?: Yes Candidate for Swing Bed for Therapy Services?: Feel pt would not be a candidate for swing bed due to decreased cognition would need to re assess at a later time. Evaluation Complexity: HISTORY: Medium, EXAM OF BODY SYSTEMS: Medium, CLINICAL PRESENTATION: Medium, CLINICAL DECISION MAKING: Medium Patient's Goal(s): 's goal is for pt to be able to walk short distances in the home. Short Term Goals GOAL #1: pt demonstrate rolling and bridging with CGA Goal to be met by: 08/09/19 GOAL #2: pt transfer sup to/from sit CGA Goal to be met by: 08/09/19 GOAL #3: Sit to/from stand min x 1 from chair Goal to be met by: 08/09/19 GOAL #4: pt amb with rwx 120ft with CGA with no LOB Goal to be met by: 08/09/19 Repair Service Dispatcher Goals GOAL #1: pt transfer sup to/from sit to/from stand CGA Goal to be met by: 08/12/19 GOAL #2: pt amb with rwx functional household distances SBA Goal to be met by: 08/12/19 GOAL #3: Improve dyn stand balance fair+ Goal to be met by: 08/12/19 Plan Plan of Care: Therapeutic EX, Therapeutic Activity, Self-Care/Home Management Other:: gait training Frequency of Treatment: 1-2 X day, as tolerated Duration of Treatment: 5 days Anticipated Discharge Destination: Home Treatment Diagnosis (ICD 10 Codes): R 26.2 difficulty walking. R 26.81 balance impaired Has the Physician been added for Co-signature?: Yes
--- NOTE | 2019-08-07 16:19 | RS.OTINEVL ---
Subjective - Patient information Date of Evaluation: 08/07/19 Date of Arrival on Unit: 08/06/19 Admitted From:: Home Diagnosis: Acute respiratory failure, CHF, Afib PRECAUTIONS: Fall risk Usual Living Arrangement: With Spouse Living Arrangement Comments: Pt lives at home with his of 54 years. Home Environment: House, Stairs (few), Rail Medical History: Dementia, CHF, Arthritis Medical History Comments:: chronic kidney disease, blood clots, dementia, CHF, CAD, HTN, LATEX ALLERGY?: No Medications: see chart Subjective Information/ Patient Comments:: Pt reports he have laid here in this bed and was wet. Pt's reports that is not true. - Level of function Prior to this admission, the patient could do the following:: Partially Dependent Ambulation Abilities prior to this admission: Pt was living at home with his . Pt requires some assistance from his . Current Level of Function: Partially Dependent Current Equipment Used at Home: walker Pain Assessment - Pain Pain Score: 0 Interventions - Objective Patient Orientation: Person Current Interventions: IV's, Oxygen Observation: Pt is able to complete bed mobility minimal assistance. Pt has limited AROM of the RUE. Pt sat EOB for 8 minutes maintaining balance. Interventions - ROM Right Upper Extremity AROM: Marked limitation Left Upper Extremity AROM: WFL's - Strength Right Upper Extremity Strength: Severe Weakness Left Upper Extremity Strength: Normal - Sensation Right Upper Extremity Sensation: Intact/Normal Left Upper Extremity Sensation: Intact/Normal Balance - Sitting Balance Static Sitting Balance: Good Dynamic Sitting Balance: Good - Standing Balance Static Standing Balance: Poor Dynamic Standing Balance: Poor ADL Skills - Self Feeding Self Feeding: CGA - Grooming Grooming: Not Tested - Bathing Bathing UE: Not Tested Bathing LE: Not Tested - Dressing Dressing LE: Min Assist, Max Assist - Toilet Management Toileting Management: Max Assist Functional Mobility - Bed Mobility Rolling R/L: Min Assist Scooting: Min Assist Supine to Sit: Min Assist Sit to Supine: Min Assist Comments:: Pt has trouble getting his LLE in the bed moving sit to supine. - Transfers Sit to Stand: Mod Assist - Ambulation Weight Bearing Status: FWB - Safety Awareness Safety Awareness: Fair DAMASO INDEX SCORE: . Additional Treatment Performed - Time with patient Length of Evaluation: 20 Total treatment time: 20 Activities Do you enjoy playing games?: No Would you be interested in leaving your room for activities?: Yes Do you have difficulty with your vision?: Yes Patient Interests:: Watching Television, Visiting/Socializing Patient Education Patient Education: Education of diagnosis, Home Exercise Program, Activity Modification, Education of Plan of Care Teaching Recipient: Patient, Family Teaching Methods: Discussion Assessment Problem List:: Decreased level of function, Requires training/education, Decreased safety/Risk of falls, Weakness, Cognitive status limits abilities Rehab Potential: Fair Further Therapy Indicated?: Yes Evaluation Complexity: HISTORY: Medium, EXAM OF BODY SYSTEMS: Medium, CLINICAL DECISION MAKING: Medium Patient's Goal(s): To get better and go home. Short Term Goals - Goals GOAL 1: Pt to increase (I) of self care to Min Assist. Goal to be met by: 08/10/19 GOAL 2: Pt to increase dyn. std. bal. to Fair-. Goal to be met by: 08/10/19 GOAL 3: Pt to increase activity tolerance to 10 minutes. Goal to be met by: 08/10/19 Plastic Shaper Goals GOAL 1: Pt to increase (I) of self care to CGA. Goal to be met by: 08/13/19 GOAL 2: Pt to increase dyn. std. bal. to G-. Goal to be met by: 08/13/19 GOAL 3: Pt to be able to complete 15 minute activity using RW. Goal to be met by: 08/13/19 Plan Plan of Care: Therapeutic EX, Neuromuscular Re-Educ, Therapeutic Activity, Self- Care/Home Management Frequency of Treatment: 1-2 X day, as tolerated Duration of Treatment: 1 Week Anticipated Discharge Destination: Home Treatment Diagnosis (ICD 10 Codes): Muscle weakness M62.81, Z74.1 Need for assistance with personal care. Has the Physician been added for Co-signature?: Yes
[2019-08-07] MEDS: NORVASC PO SCH (20:58)
[2019-08-07] MEDS: PRAVACHOL PO SCH (20:59)
[2019-08-07] MEDS: SEROQUEL PO SCH (20:59)
[2019-08-08 05:29] LABS: HEMATOCRIT 39.6 % (42.0-52.0)
[2019-08-08] MEDS: PRILOSEC PO SCH (05:45)
[2019-08-08] MEDS: LASIX IVP SCH (05:45)
[2019-08-08] MEDS: LOPRESSOR PO SCH ×2 (08:48→20:31)
[2019-08-08] MEDS: ELIQUIS PO SCH ×2 (08:48→20:29)
[2019-08-08] MEDS: MIRALAX PO SCH (08:48)
[2019-08-08] MEDS: COZAAR PO SCH ×2 (08:48→20:30)
[2019-08-08] MEDS: COLACE PO SCH (08:48)
[2019-08-08] MEDS: ULTRAM PO SCH ×4 (08:49→20:30)
[2019-08-08] MEDS: FERROUS SULFATE PO SCH (08:49)
[2019-08-08] MEDS: K-DUR PO SCH (08:49)
[2019-08-08] MEDS: ALDACTONE PO SCH ×2 (08:49→20:29)
--- NOTE | 2019-08-08 09:00 | PCM.PROG ---
Attending Provider: ATTENDING PROVIDER: Dr. MARIAH HARRISON This patient is seen with Simin Prince, Nurse Practitioner. DATE OF SERVICE: 08/08/19 SUBJECTIVE: This 88 year old /WHITE M was hospitalized 08/06/19. The patient is resting comfortably. Leg edema has significantly improved. Shortness of breath improved. Blood pressure has been improved. He is pleasantly confused. REVIEW OF SYSTEMS: CONSTITUTIONAL: No night sweats. No fatigue, malaise, lethargy. No fever or chills. Weakness. HEENT: Eyes: No visual changes. No eye pain. No eye discharge. ENT: No runny nos e. No epistaxis. No sinus pain. No odynophagia. No congestion. RESPIRATORY: No cough, no congestion. No hemoptysis. No shortness of breath. CARDIOVASCULAR: No angina symptoms. No CHF symptoms. No atypical chest pain for CAD. No palpitations. No orthopnea.. GASTROINTESTINAL: No abdominal pain. No nausea or vomiting. No diarrhea or constipation. No hematemesis. No hematochezia. GENITOURINARY: No urgency. No frequency. No dysuria. No hematuria. No obstructive symptoms. No discharge. No pain. No significant abnormal bleeding. MUSCULOSKELETAL: No musculoskeletal pain; no joint swelling. NEUROLOGICAL: Awake, alert, confused. No headache. No neck pain. No syncope. No seizures. No dizziness. PSYCHIATRIC: Not anxious. No depression. No suicidal thoughts. No homicidal thoughts. SKIN: No rash. No lesions. No wounds. Improved leg edema. ENDOCRINE: No unexplained weight loss. No weight gain. HEMATOLOGIC/LYMPHATIC: No anemia. No purpura. No petechiae. No prolonged or excessive bleeding. No palpable lymph nodes. PHYSICAL EXAMINATION: GENERAL: The patient is awake, alert, lying in bed in no distress. VITAL SIGNS: Temperature 97.8 F, Pulse 61, Respiratory Rate 18, BP 151/81, Pulse Ox 98% HEENT: Head normocephalic, atraumatic. Eyes: Extraocular muscles are intact. Pupils are equal, round and reactive to light and accommodation. Ears: No lesions. Nose appeared normal. Throat: No exudate or erythema. NECK: Supple. No JVD, no carotid bruit. No lymphadenopathy or thyromegaly. LUNGS: Diminished breath sounds. Clear to auscultation. Percussion note normal. Chest symmetrical. HEART: S1, S2, no S3. Irregular heart rate. No murmurs. No cyanosis or club carole. No ascites. Pulses: Dorsalis pedis and posterior tibial pulses +1 to +2 both sides. ABDOMEN: Soft. Non-tender. Bowel sounds active. No CVA tenderness. No mass felt. EXTREMITIES: Trace leg edema, left greater than right. Full range of motion of all extremities, equal. NEUROLOGIC: No focal deficit. Cranial nerves II through XII are grossly intact. No headache, no double vision or headache. SKIN: Not dry. Intact. Turgor-normal. LYMPHATIC: No palpable lymph nodes/no lymphedema. MUSCULOSKELETAL: Normal joints with no swelling. Muscle tone is normal. LAB REVIEW: 08/08/19 05:03 08/08/19 05:03 08/08/19 05:03: Sodium 138.1, Potassium 3.86, Chloride 98.4, Carbon Dioxide 35.3 H, Anion Gap 8.26, BUN 31.5 H, Creatinine 1.02, Estimated GFR (MDRD) 69.00, BUN/Creatinine Ratio 30.88, Glucose 90.3, Calcium 10.61 H, Total Bilirubin 0.75, AST 29.9, ALT 13.6, Alkaline Phosphatase 118.4, Total Protein 6.61, Albumin 3.51, Globulin 3.10, Albumin/Globulin Ratio 1.13 08/08/19 05:03: WBC 4.62, RBC 3.82 L, Hgb 12.6 L, Hct 39.6 L, MCV 103.7 H, MCH 33.0 H, MCHC 31.8, RDW Coeff of Domitila 13.5, Plt Count 83 L, Immature Gran % (Auto) 0.2, Neut % (Auto) 52.0, Lymph % (Auto) 28.4, Navarro % (Auto) 15.8 H, Eos % (Auto) 3.2, Baso % (Auto) 0.4, Immature Gran # (Auto) 0.0, Neut # (Auto) 2.4, Lymph # (Auto) 1.3, Navarro # (Auto) 0.7, Eos # (Auto) 0.2, Baso # (Auto) 0.0 ASSESSMENT: Please see below. 1. Acute respiratory failure, resolved 2. CHF clinical improved 3. Hypertension, improving 4. Atrial fibrillation 5. Asymptomatic bradycardiac while sleeping acute res PLAN: 1. Discontinue IV Lasix 2. Start PO Lasix 40mg daily tomorrow. 3. Elevate Legs 4. Echo Plan and coordination of the patient's care discussed in the presence of Reagent Tender and nurse. SCRIBED BY: LYNDSEY RUIZ Cigarette Making Examiner scribed while in presence of service performed by Dr. Harrison/Simin Prince APRN on 08/08/19 ([id number])
--- NOTE | 2019-08-08 13:55 | PN ---
DATE OF SERVICE: 08/06/19 SUBJECTIVE: The patient was seen and examined this morning. The patient had 4+ edema, now it is 2+, putting out close to 2,000 cc of urine. was present in the room. No PND, no orthopnea, no palpitation. PHYSICAL EXAMINATION: HEENT: Head normocephalic, atraumatic. Eyes: Extraocular muscles are intact. Pupils are equal, round and reactive to light and accommodation. Ears: No lesions. Nose appeared normal. Throat: No exudate or erythema. NECK: Supple. No JVD, no carotid bruit. No lymphadenopathy or thyromegaly. LUNGS: Decreased breath sounds but clear to auscultation. Percussion note normal. Chest symmetrical. HEART: S1, S2, no S3. No murmurs. No cyanosis or clubbing. No ascites. Pulses: Dorsalis pedis and posterior tibial pulses +1 to +2 bilaterally. ABDOMEN: Soft. Nontender. Bowel sounds active. No CVA tenderness. No mass felt. EXTREMITIES: No edema. Full range of motion of all extremities, equal. NEUROLOGIC: No focal deficit. Cranial nerves II through XII are grossly intact. No headache, no double vision or headache. SKIN: Not dry. Intact. Turgor - normal. LYMPHATIC: No palpable lymph nodes/no lymphedema. MUSCULOSKELETAL: Normal joints with no swelling. Muscle tone is normal. PLAN: 1. Continue diuretic therapy. 2. Elevate the legs. 3. Will do echo to evaluate LV Function. CONDITION: Stable. TIME SPENT: More than 30 minutes. Plan and coordination of the patient's care discussed in the presence of nurse. BHAVANA
[2019-08-08] MEDS: PRAVACHOL PO SCH (20:29)
[2019-08-08] MEDS: SEROQUEL PO SCH (20:30)
[2019-08-08] MEDS: NORVASC PO SCH (20:31)
[2019-08-09 05:20] LABS: HEMATOCRIT 38.7 % (42.0-52.0)
[2019-08-09] MEDS: LASIX TAB PO SCH (05:59)
[2019-08-09] MEDS: PRILOSEC PO SCH (05:59)
[2019-08-09] MEDS: LOPRESSOR PO SCH ×2 (09:03→20:22)
[2019-08-09] MEDS: COLACE PO SCH (09:03)
[2019-08-09] MEDS: K-DUR PO SCH (09:04)
[2019-08-09] MEDS: ULTRAM PO SCH ×4 (09:04→20:23)
[2019-08-09] MEDS: ALDACTONE PO SCH ×2 (09:04→20:22)
[2019-08-09] MEDS: COZAAR PO SCH ×2 (09:04→20:21)
[2019-08-09] MEDS: FERROUS SULFATE PO SCH (09:04)
[2019-08-09] MEDS: MIRALAX PO SCH (09:05)
[2019-08-09] MEDS: ELIQUIS PO SCH ×2 (09:05→20:23)
--- NOTE | 2019-08-09 09:40 | PCM.PROG ---
Attending Provider: ATTENDING PROVIDER: Dr. MARIAH HARRISON This patient is seen with Simin Prince, Nurse Practitioner. DATE OF SERVICE: 08/09/19 SUBJECTIVE: This 88 year old /WHITE M was hospitalized 08/06/19. The patient is lying in bed resting comfortably. Blood pressure has improved. Kidney function stable. He has been eating well. REVIEW OF SYSTEMS: CONSTITUTIONAL: Positive for weakness. No night sweats. No fatigue, malaise, lethargy. No fever or chills. HEENT: Eyes: No visual changes. No eye pain. No eye discharge. ENT: No runny nose. No epistaxis. No sinus pain. No odynophagia. No congestion. RESPIRATORY: No cough, no congestion. No hemoptysis. No shortness of breath. CARDIOVASCULAR: No angina symptoms. No CHF symptoms. No atypical chest pain for CAD. No palpitations. No orthopnea.. GASTROINTESTINAL: No abdominal pain. No nausea or vomiting. No diarrhea or constipation. No hematemesis. No hematochezia. GENITOURINARY: No urgency. No frequency. No dysuria. No hematuria. No obstructive symptoms. No discharge. No pain. No significant abnormal bleeding. MUSCULOSKELETAL: No musculoskeletal pain; no joint swelling. NEUROLOGICAL: Awake, alert, positive for confusion. No headache. No neck pain. No syncope. No seizures. No dizziness. PSYCHIATRIC: Not anxious. No depression. No suicidal thoughts. No homicidal thoughts. SKIN: No rash. No lesions. No wounds. ENDOCRINE: No unexplained weight loss. No weight gain. HEMATOLOGIC/LYMPHATIC: No anemia. No purpura. No petechiae. No prolonged or excessive bleeding. No palpable lymph nodes. PHYSICAL EXAMINATION: GENERAL: The patient is awake, alert, confused lying/sitting in bed in no distress. VITAL SIGNS: Temperature 98.2 F, Pulse 53, Respiratory Rate 16, BP 130/73, Puls e Ox 100% HEENT: Head normocephalic, atraumatic. Eyes: Extraocular muscles are intact. Pupils are equal, round and reactive to light and accommodation. Ears: No lesions. Nose appeared normal. Throat: No exudate or erythema. NECK: Supple. No JVD, no carotid bruit. No lymphadenopathy or thyromegaly. LUNGS: Diminished breath sounds. Clear to auscultation. Percussion note normal. Chest symmetrical. HEART: Positive for irregular heart rate. S1, S2, no S3. No murmurs. No cyanosis or clubbing. No ascites. Pulses: Dorsalis pedis and posterior tibial pulses +1 to +2 both sides. ABDOMEN: Soft. Non-tender. Bowel sounds active. No CVA tenderness. No mass felt. EXTREMITIES: Positive for trace bilateral leg edema left greater than right. Full range of motion of all extremities, equal. NEUROLOGIC: No focal deficit. Cranial nerves II through XII are grossly intact. No headache, no double vision or headache. SKIN: Not dry. Intact. Turgor-normal. LYMPHATIC: No palpable lymph nodes/no lymphedema. MUSCULOSKELETAL: Normal joints with no swelling. Muscle tone is normal. LAB REVIEW: 08/09/19 04:57 08/09/19 04:57 08/09/19 04:57: Sodium 137.9, Potassium 3.54, Chloride 99.0, Carbon Dioxide 36.2 H, Anion Gap 6.24, BUN 30.5 H, Creatinine 1.15 H, Estimated GFR (MDRD) 60.00, BUN/Creatinine Ratio 26.52, Glucose 94.4, Calcium 10.43 H, Total Bilirubin 0.62, AST 23.9, ALT 12.8, Alkaline Phosphatase 104.7, Total Protein 6.16 L, Albumin 3.21 L, Globulin 2.95, Albumin/Globulin Ratio 1.08 08/09/19 04:57: WBC 4.01 L, RBC 3.71 L, Hgb 12.2 L, Hct 38.7 L, MCV 104.3 H, MCH 32.9 H, MCHC 31.5 L, RDW Coeff of Domitila 13.4, Plt Count 77 L, Immature Gran % (Auto) 0.2, Neut % (Auto) 45.7, Lymph % (Auto) 33.9, Wood % (Auto) 15.7 H, Eos % (Auto) 4.0, Baso % (Auto) 0.5, Immature Gran # (Auto) 0.0, Neut # (Auto) 1.8 L, Lymph # (Auto) 1.4, Wood # (Auto) 0.6, Eos # (Auto) 0.2, Baso # (Auto) 0.0 ASSESSMENT: Please see below. 1. Acute respiratory failure, resolved. 2. CHF clinically improved. 3. Hypertension, improving. 4. Atrial fibrillation. 5. Asymptomatic bradycardia while sleeping. PLAN: 1. Continue Lasix and Aldactone. 2. Daily weights. 3. Fall precautions. Plan and coordination of the patient's care discussed in the presence of Pocket Assembler and nurse. CONDITION: Stable SCRIBED BY: JUNG ROBINS Company Controller scribed while in presence of service performed by Dr. Harrison/Simin Prince APRN on 08/09/19 ([id number])
--- NOTE | 2019-08-09 13:31 | PN ---
DATE OF SERVICE: 08/07/19 SUBJECTIVE: 88-year-old white male hospitalized with acute respiratory failure, atrial fibrillation and massive leg edema 4+ pitting. His condition has improved. He has no symptoms of CHF. REVIEW OF SYSTEMS: CONSTITUTIONAL: No night sweats. No fatigue, malaise, lethargy. No fever or chills. HEENT: Eyes: No visual changes. No eye pain. No eye discharge. ENT: No runny nose. No epistaxis. No sinus pain. No sore throat. No odynophagia. No congestion. RESPIRATORY: No cough, no congestion. No hemoptysis. No shortness of breath. CARDIOVASCULAR: No angina symptoms. No CHF symptoms. No atypical chest pain for CAD. No palpitations. No PND. No orthopnea. GASTROINTESTINAL: Appetite has improved. He is cleaning up his plate. No abdominal pain. No nausea or vomiting. No diarrhea or constipation. No hematemesis. No hematochezia. GENITOURINARY: No urgency. No frequency. No dysuria. No hematuria. No obstructive symptoms. No discharge. No pain. No significant abnormal bleeding. MUSCULOSKELETAL: No musculoskeletal pain; no joint swelling. NEUROLOGICAL: No headache. No neck pain. No syncope. No seizures. No dizziness. PSYCHIATRIC: Not anxious. No depression. No suicidal thoughts. No homicidal thoughts. SKIN: No rash. No lesions. No wounds. ENDOCRINE: No unexplained weight loss. No weight gain. HEMATOLOGIC/LYMPHATIC: No anemia. No purpura. No petechiae. No prolonged or excessive bleeding. No palpable lymph nodes. PHYSICAL EXAMINATION: VITAL SIGNS: Temperature 97.7, pulse 60, respiratory rate 18, BP 150/80, pulse ox 100%. HEENT: Head normocephalic, atraumatic. Eyes: Extraocular muscles are intact. Pupils are equal, round and reactive to light and accommodation. Ears: No lesions. Nose appeared normal. Throat: No exudate or erythema. NECK: Supple. No JVD, no carotid bruit. No lymphadenopathy or thyromegaly. LUNGS: Decreased breath sounds but clear to auscultation. Percussion note normal. Chest symmetrical. HEART: S1, S2, no S3. Grade II/ systolic murmur. No cyanosis or clubbing. No ascites. Pulses: Dorsalis pedis and posterior tibial pulses +1 to +2 bilaterally. ABDOMEN: Soft. Nontender. Bowel sounds active. No CVA tenderness. No mass felt. EXTREMITIES: +2 pitting edema. Full range of motion of all extremities, equal. NEUROLOGIC: No focal deficit. Cranial nerves II through XII are grossly intact. No headache, no double vision or headache. SKIN: Not dry. Intact. Turgor - normal. LYMPHATIC: No palpable lymph nodes/no lymphedema. MUSCULOSKELETAL: Normal joints with no swelling. Muscle tone is normal. LABS: Hemoglobin 13.4, hematocrit 42, WBC 4,800, normal differential. Creatinine 1.1, BUN 30, potassium 3.4. ASSESSMENT/PLAN: 1. CHF with respiratory failure seems to have resolved. Oxygen saturation is 100% with 2L; room air is 92%. Leg edema is resolving.IV Lasix to be given. We will add Aldactone 25 mg b.i.d. 2. Hypokalemia. Potassium supplements may not be needed because of Aldactone. Continue to monitor. 3. Echocardiogram to evaluate LV function. 4. The patient had cardioversion done which was not successful. The patient is still in atrial fib with rate of 35 to 70 bpm. No pauses of more than two seconds noted. The is present in the room. She is very happy with the patient's progress and the care the patient is getting. TIME SPENT: More than 30 minutes. Plan and coordination of the patient's care discussed in the presence of nurse. BHAVANA
--- NOTE | 2019-08-09 14:17 | PN ---
DATE OF SERVICE: 08/08/19 SUBJECTIVE: The patient was seen and examined with the nurse practitioner. The patient's condition seems to be improving. PHYSICAL EXAMINATION: HEENT: Head normocephalic, atraumatic. Eyes: Extraocular muscles are intact. Pupils are equal, round and reactive to light and accommodation. Ears: No lesions. Nose appeared normal. Throat: No exudate or erythema. NECK: Supple. No JVD, no carotid bruit. No lymphadenopathy or thyromegaly. LUNGS: Decreased breath sounds but clear to auscultation. Percussion note normal. Chest symmetrical. HEART: S1, S2, no S3. No murmurs. No cyanosis or clubbing. No ascites. Pulses: Dorsalis pedis and posterior tibial pulses +1 to +2 bilaterally. ABDOMEN: Soft. Nontender. Bowel sounds active. No CVA tenderness. No mass felt. EXTREMITIES: No edema. Full range of motion of all extremities, equal. NEUROLOGIC: No focal deficit. Cranial nerves II through XII are grossly intact. No headache, no double vision or headache. SKIN: Not dry. Intact. Turgor - normal. LYMPHATIC: No palpable lymph nodes/no lymphedema. MUSCULOSKELETAL: Normal joints with no swelling. Muscle tone is normal. Echocardiogram showed LV contractility being hypokinetic with ejection fraction 45%. LVH noted with markedly enlarged LA cavity. The patient's Lasix we added, Aldactone 25 mg b.i.d. Potassium is normal today. TIME SPENT: More than 30 minutes. Plan and coordination of the patient's care discussed in the presence of nurse. BHAVANA
--- NOTE | 2019-08-09 14:21 | PN ---
DATE OF SERVICE: 08/09/19 SUBJECTIVE: The patient was seen and examined with the nurse practitioner. The patient's edema is much less. Potassium is borderline. The patient is being treated with Lasix, Aldactone. Cardiovascular status is stable. The patient should be ready in a couple of days to be discharged. His condition and appetite are both improving. The is happy with his progress. TIME SPENT: More than 30 minutes. Plan and coordination of the patient's care discussed in the presence of nurse. BHAVANA
[2019-08-09] MEDS: PRAVACHOL PO SCH (20:22)
[2019-08-09] MEDS: SEROQUEL PO SCH (20:22)
[2019-08-09] MEDS: NORVASC PO SCH (20:22)
[2019-08-10 05:15] LABS: HEMATOCRIT 38.8 % (42.0-52.0)
[2019-08-10] MEDS: LASIX TAB PO SCH (05:41)
[2019-08-10] MEDS: PRILOSEC PO SCH (05:41)
[2019-08-10] MEDS: MIRALAX PO SCH (08:37)
[2019-08-10] MEDS: FERROUS SULFATE PO SCH (08:38)
[2019-08-10] MEDS: COLACE PO SCH (08:38)
[2019-08-10] MEDS: COZAAR PO SCH ×2 (08:38→20:53)
[2019-08-10] MEDS: LOPRESSOR PO SCH ×2 (08:38→20:54)
[2019-08-10] MEDS: K-DUR PO SCH (08:39)
[2019-08-10] MEDS: ULTRAM PO SCH ×4 (08:39→20:54)
[2019-08-10] MEDS: ALDACTONE PO SCH ×2 (08:39→20:53)
[2019-08-10] MEDS: ELIQUIS PO SCH ×2 (08:40→20:53)
[2019-08-10] MEDS: SEROQUEL PO SCH (20:53)
[2019-08-10] MEDS: NORVASC PO SCH (20:54)
[2019-08-10] MEDS: PRAVACHOL PO SCH (20:54)
[2019-08-11] MEDS: PRILOSEC PO SCH (05:31)
[2019-08-11] MEDS: LASIX TAB PO SCH (05:31)
[2019-08-11] MEDS: MIRALAX PO SCH (09:15)
[2019-08-11] MEDS: ULTRAM PO SCH ×4 (09:15→20:23)
[2019-08-11] MEDS: LOPRESSOR PO SCH ×2 (09:15→20:19)
[2019-08-11] MEDS: COLACE PO SCH (09:16)
[2019-08-11] MEDS: COZAAR PO SCH ×2 (09:16→20:23)
[2019-08-11] MEDS: FERROUS SULFATE PO SCH (09:16)
[2019-08-11] MEDS: K-DUR PO SCH (09:16)
[2019-08-11] MEDS: ALDACTONE PO SCH ×2 (09:16→20:23)
[2019-08-11] MEDS: ELIQUIS PO SCH ×2 (09:16→20:20)
[2019-08-11] MEDS: NORVASC PO SCH (20:19)
[2019-08-11] MEDS: SEROQUEL PO SCH (20:19)
[2019-08-11] MEDS: PRAVACHOL PO SCH (20:20)
[2019-08-12 05:16] LABS: HEMATOCRIT 40.5 % (42.0-52.0)
[2019-08-12] MEDS: PRILOSEC PO SCH (06:38)
[2019-08-12] MEDS: LASIX TAB PO SCH (06:38)
[2019-08-12] MEDS: MIRALAX PO SCH (08:59)
[2019-08-12] MEDS: COZAAR PO SCH ×2 (09:00→21:00)
[2019-08-12] MEDS: ULTRAM PO SCH ×2 (09:01→12:26)
[2019-08-12] MEDS: FERROUS SULFATE PO SCH (09:01)
[2019-08-12] MEDS: K-DUR PO SCH (09:01)
[2019-08-12] MEDS: ALDACTONE PO SCH ×2 (09:02→21:00)
[2019-08-12] MEDS: LOPRESSOR PO SCH ×2 (09:02→21:01)
[2019-08-12] MEDS: COLACE PO SCH (09:04)
[2019-08-12] MEDS: ELIQUIS PO SCH ×2 (09:05→21:01)
--- NOTE | 2019-08-12 09:43 | DS ---
DATE OF SERVICE: 08/16/2019 FINAL DIAGNOSIS: 1. ACUTE RESPIRATORY FAILURE,RESOLVED 2. LEG EDEMA, DEPENDENT 3. ACUTE CHOLECYSTITIS WITH CHOLELITHIASIS 4. UTI, E-COLI 5. ATRIAL FIB (ON ELIQUIS) 6. CHRONIC KIDNEY DISEASE 7. DEMENTIA 8. RECENT FALL 9. 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 PHYSICAL THERAPY EVALUATION; PATIENT UTILIZES WALKER OCCUPATIONAL THERAPY EVALUATION. VITAL SIGNS DAILY FOR 1 WEEK, THEN WEEKLY. OXYGEN SATURATION DAILY FOR 1 WEEK, THEN WEEKLY. INCONTINENT CARE PRN. DECUBITUS PRECAUTIONS. CBC, CMP ON MONDAY () AND THEN WEEKLY TSH, LIPIDS EVERY 6 MONTHS. CODE STATUS: CPR ONLY, DO NOT INTUBATE. THE PATIENT TO BE SEEN ON ALF ROUNDS BY / TIGRE CRUZ APRN IN 5-7 DAYS. TAKE THESE MEDICATIONS AT HOME: Amlodipine Besylate (Norvasc) 5 mg PO BEDTIME [facility] Last Admin: 08/15/19 20:32 Dose: 5 mg Documented by: Apixaban (Eliquis) 5 mg PO BID [facility] Last Admin: 08/16/19 10:49 Dose: 5 mg Documented by: Docusate Sodium (Colace) 100 mg PO DAILY [facility] Last Admin: 08/16/19 10:48 Dose: 100 mg Documented by: Ferrous Sulfate (Ferrous Sulfate) 324 mg PO DAILY [facility] Last Admin: 08/16/19 10:48 Dose: 324 mg Documented by: Furosemide (Lasix Tab) 40 mg PO QDAC [facility] Last Admin: 08/16/19 05:39 Dose: 40 mg Documented by: Losartan Potassium (Cozaar) 50 mg PO BID [facility] Last Admin: 08/16/19 10:48 Dose: 50 mg Documented by: Metoprolol Tartrate (Lopressor) 25 mg PO BID [facility] Last Admin: 02/14/20 10:49 Dose: 25 mg Documented by: Omeprazole (Prilosec) 20 mg PO DAILY@0630 [facility] Last Admin: 08/16/19 05:38 Dose: 20 mg Documented by: Polyethylene Glycol (Miralax) 17 gm PO DAILY [facility] Last Admin: 08/16/19 10:48 Dose: 17 gm Documented by: Potassium Chloride (K-Dur) 20 meq PO DAILYWM [facility] Last Admin: 08/16/19 10:48 Dose: 20 meq Documented by: Quetiapine Fumarate (Seroquel) 25 mg PO BEDTIME [facility] Last Admin: 08/15/19 20:31 Dose: 25 mg Documented by: Spironolactone (Aldactone) 25 mg PO DAILY [facility] Last Admin: 08/16/19 10:48 Dose: 25 mg Documented by: ALLERGIES: diazepam [From Valium] Adverse Reaction (Verified 08/06/19 00:52) hydrocodone Adverse Reaction (Verified 08/06/19 00:52) PAPER TAPE Adverse Reaction (Uncoded 08/06/19 00:52) DISCONTINUED MEDICATIONS: PRAVASTATIN NEW PRESCRIPTIONS: KEFLEX 500 MG TID FOR 5 DAYS, START TONIGHT NORVASC 5 MG PO AT BEDTIME DAILY COZAAR 50 MG PO BID ALDACTONE 25 MG PO DAILY SMOKING: NOT APPLICABLE DISEASE SPECIFIC EDUCATION: PATIENT ALERT TO PERSON ONLY TEACHING PROVIDED BY DR. HARRISON TO MRS. CRUZ REGARDING CHOLELITHIASIS LAB REVIEW: 08/16/19 04:43 08/16/19 04:43 08/16/19 04:43: Sodium 141.2, Potassium 3.77, Chloride 108.1 H, Carbon Dioxide 26.6, Anion Gap 10.27, BUN 23.9 H, Creatinine 0.94, Estimated GFR (MDRD) 76.00, BUN/Creatinine Ratio 25.42, Glucose 99.9, Calcium 10.69 H, Total Bilirubin 4.31 H, AST 126.4 H D, ALT 167.6 H, Alkaline Phosphatase 347.2 H, Total Protein 7.06, Albumin 3.36 L, Globulin 3.70, Albumin/Globulin Ratio 0.90 08/16/19 04:43: WBC 4.00 L, RBC 3.99 L, Hgb 13.1 L, Hct 39.7 L, MCV 99.5 H, MCH 32.8 H, MCHC 33.0, RDW Coeff of Domitila 13.8, Plt Count 111 L, Immature Gran % (Auto) 0.3, Neut % (Auto) 55.3, Lymph % (Auto) 25.8, Toole % (Auto) 15.3 H, Eos % (Auto) 2.8, Baso % (Auto) 0.5, Immature Gran # (Auto) 0.0, Neut # (Auto) 2.2, Lymph # (Auto) 1.0, Toole # (Auto) 0.6, Eos # (Auto) 0.1, Baso # (Auto) 0.0 DIET: LOW FAT, AT LEAST 5 SMALL MEALS DAILY, REGULAR CONSISTENCY AND TEXTURE LIQUIDS REGULAR ACTIVITY: UP TO CHAIR; ELEVATE LEGS WHEN SITTING DINING ROOM FOR MEALS, PATIENT FEEDS SELF SLOWLY HOSPITAL COURSE: Mr. Cruz was hospitalized with leg edema +3 to +4. The patient was short of breath. Maybe there was early CHF. In any case the patient was treated with leg elevation, IV Lasix and his condition seemed to have improved. During the stay in the hospital the patient got incoherent, drowsy. The next day that patient's CMP showed obstructive type of jaundice. On further work up the patient had acute cholecystitis with evidence of Cholelithiasis without any obstruction of the biliary tree. In any case the patient on the second day after obtundation and incoherent that patient improved remarkably. For the past three days before discharge the patient was able to eat his lunch and dinner without any problem. On physical examination his abdomen remain flat, soft with no rebound tenderness was noted. He was practically afebrile. His liver functions have continued to improve. The patient's was made aware of it each and every day as she was present in the room all the time. The patient's is power of ip technology transactions attorney for health. The case was discussed in detail right from the first day of his obstructive jaundice but as the patient had started eating his lunch and having normal bowel movements and being afebrile it was decided that the patient is responding to conservative management with IV antibiotics and practically just observation from what looks like he suffered from gallbladder colic with observation within few hours on the day when he was incoherent and somewhat drowsy. The patient is up and about with help. The wants the patient to be discharged to the half-way. She has gotten the bed in the unit at [facility] that exact she wants. The patient on the day of discharge had good appetite, ate good lunch. He is oriented to time, place and person. His abdomen is soft, bowel sounds active. His liver function overall shows improvement. The patient is going to be discharged home. Considering the condition, multiple endstage medical problems like coronary artery disease, congestive heart failure and dementia it was decided not to frighten this patient. Also the patient had urinary trace infection with e-coli which was treated with the same antibiotics that was used for cholecystitis. That is Rocephin. On discharge the patient is going to be on Keflex. The patient is going to have CMP and CBC done three days after discharged and every weekly. At present time the patient's doesn't want any surgical referral or consultation. In case the patient has acute cholecystitis symptomatic we may decided to go for surgical evaluation but as long as the patient is asymptomatic she wants him to be left alone. The patient is DNI. PROGNOSIS: Guarded. CONDITION: Stable. TIME SPENT: More than 60 minutes. BHAVANA
--- NOTE | 2019-08-12 09:43 | PN ---
08/06/2019: Level 5 08/07/2019: Intermediate 08/08/2019: Intermediate 08/09/2019: Intermediate 08/10/2019: Intermediate 08/11/2019: Intermediate 08/12/2019: D as in discharge MTDD
--- NOTE | 2019-08-12 09:59 | PN ---
DATE OF SERVICE: 08/12/2019 SUBJECTIVE: The patient was seen and examined this morning. The patient's condition has improved remarkably. He is alert but seems to be confused. REVIEW OF SYSTEMS: CONSTITUTIONAL: No night sweats. No fatigue, malaise, lethargy. No fever or chills. HEENT: Eyes: No visual changes. No eye pain. No eye discharge. ENT: No runny nose. No epistaxis. No sinus pain. No sore throat. No odynophagia. No congestion. RESPIRATORY: No cough, no congestion. No hemoptysis. No shortness of breath. CARDIOVASCULAR: No angina symptoms. No CHF symptoms. No atypical chest pain for CAD. No palpitations. No PND. No orthopnea. GASTROINTESTINAL: No abdominal pain. No nausea or vomiting. No diarrhea or constipation. No hematemesis. No hematochezia. GENITOURINARY: No urgency. No frequency. No dysuria. No hematuria. No obstructive symptoms. No discharge. No pain. No significant abnormal bleeding. MUSCULOSKELETAL: No musculoskeletal pain; no joint swelling. NEUROLOGICAL: Confusion. No headache. No neck pain. No syncope. No seizures. No dizziness. PSYCHIATRIC: Not anxious. No depression. No suicidal thoughts. No homicidal thoughts. SKIN: No rash. No lesions. No wounds. ENDOCRINE: No unexplained weight loss. No weight gain. HEMATOLOGIC/LYMPHATIC: No anemia. No purpura. No petechiae. No prolonged or excessive bleeding. No palpable lymph nodes. PHYSICAL EXAMINATION: VITAL SIGNS: Temperature 97.9, pulse 64, respiratory rate 16, blood pressure 118/69 and pulse ox 96%. HEENT: Head normocephalic, atraumatic. Eyes: Extraocular muscles are intact. Pupils are equal, round and reactive to light and accommodation. Ears: No lesions. Nose appeared normal. Throat: No exudate or erythema. NECK: Supple. No JVD, no carotid bruit. No lymphadenopathy or thyromegaly. LUNGS: Decreased breath sounds but clear to auscultation. Percussion note normal. Chest symmetrical. HEART: S1, S2, no S3. No murmurs. No cyanosis or clubbing. No ascites. Pulses: Dorsalis pedis and posterior tibial pulses +1 to +2 bilaterally. ABDOMEN: Soft. Nontender. Bowel sounds active. No CVA tenderness. No mass felt. EXTREMITIES: Trace pitting edema noted this morning. Full range of motion of all extremities, equal. NEUROLOGIC: No focal deficit. Cranial nerves II through XII are grossly intact. No headache, no double vision or headache. SKIN: Not dry. Intact. Turgor - normal. LYMPHATIC: No palpable lymph nodes/no lymphedema. MUSCULOSKELETAL: Normal joints with no swelling. Muscle tone is normal. LABS: Hgb 12.7, hct 40, WBC 5,400 normal differential, creatine 1, BUN 35, potassium 4.1 ASSESSMENT: 1. Acute respiratory failure on admission with CHF seems to be resolved 2. Leg edema +3 to +4 pitting seems to have resolved 3. Atrial fib/flutter persists with no pauses more than 2 seconds. 4. Dementia PLAN: 1. Discharge the patient home 2. The patient is not a candidate for swing bed 3. The patient is going to discharge home on Lasix and Aldactone 4. Potassium is stable 5. Elevate the legs 6. The patient's is present in the room. She agreed. PROGNOSIS: Guarded The patient is going be taken care of at home. He is able to walk with help, 100-150 feet. TIME SPENT: More than 30 minutes. Plan and coordination of the patient's care discussed in the presence of nurse. BHAVANA
--- NOTE | 2019-08-12 10:37 | ECHO2D ---
Date of Exam: 08/08/2019 Ordering Physician: DR. MARIAH HARRISON Room #: 112 Reason for Echo: HYPERTENSION, ATRIAL FIBRILLATION, CONGESTIVE HEART FAILURE M-Mode Normal Adult Results LV Dimensions Normal Adult Results AoV Opening excursions >1.6 >1.6 LVEDD-base- 3.5-5.8 5.1 Ao root dimensions 2.0-3.7 3.8 LVESD-base- 3.1-4.6 L. Atrium dimensions 1.9-3.8 5.3 Post. Wall thickness 0.8-1.1 1.3 IV septum (thickness) 0.7-1.2 1.4 Post. Wall excursion 0.72-1.3 NORMAL Septal motion Systolic motion R. Ventricular cavity 1.5-2.0 LVEF 60% 45-50% Paradoxical septal wall motion 2-D : 2-D M Mode Echocardiogram was performed using apical four chamber and left parasternal long and short axis views. Mitral, tricuspid and aortic valves appear to be normal. MILDLY HYPOKINETIC LEFT VENTRICLE. LEFT VENTRICLE CAVITY SIZE IS NORMAL. ENLARGED LEFT ATRIAL CAVITY. Aortic root appears to be normal. There is no pericardial effusion. There is no thrombus noted in the left ventricle or left atrial cavity. No mitral valve prolapse noted. M-MODE: MV: NORMAL AV: NORMAL TV: NORMAL PV: CHAMBER SIZE: ENLARGED LEFT ATRIAL CAVITY WALL MOTION: MILDLY HYPOKINETIC LEFT VENTRICLE PERICARDIUM: NORMAL INTERPRETATION: 1. LEFT VENTRICULAR HYPERTROPHY (MODERATE) WITH ENLARGED RIGHT ATRIAL CAVITY 2. HYPOKINETIC LEFT VENTRICLE, MILD (EJECTION FRACTION 45% TO 50%) 3. NORMAL VALVES MTDD
[2019-08-12] MEDS ORDERED: ULTRAM PO PRN (14:37)
[2019-08-12] MEDS ORDERED: NARCAN IVP STA (16:44)
[2019-08-12] MEDS ORDERED: NARCAN ONE (16:47)
--- NOTE | 2019-08-12 16:50 | CT ---
EXAM: CT Head HISTORY: Decreased responsiveness COMPARISON: 08/06/2019 TECHNIQUE: CT head performed without contrast FINDINGS: There is no mass effect, midline shift, or intracranial hemmorhage. Bravo white differenti ation is preserved. There is no extra-axial collection. 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 Stable chronic small vessel ischemic changes and generalized atroph y. No hydrocephalous. The basal cisterns are patent. There is no depressed calvarial fracture. The mastoid air cells are clear. Visualized right maxillary sinus is opacified and appears chronic. IMPRESSION: No acute intracranial abnormality or significant interval change since 08/06/2019.
[2019-08-12] MEDS: NORVASC PO SCH (21:01)
[2019-08-12] MEDS: SEROQUEL PO SCH (21:02)
[2019-08-12] MEDS: PRAVACHOL PO SCH (21:02)
[2019-08-13 05:00] LABS: HEMATOCRIT 40.2 % (42.0-52.0)
[2019-08-13] MEDS: LASIX TAB PO SCH (06:17)
[2019-08-13] MEDS: PRILOSEC PO SCH (06:17)
[2019-08-13] MEDS: DEXTROSE 5%-1/2NS IV SOLUTION 1,000 ML IV SCH ×2 (08:30→23:13)
--- NOTE | 2019-08-13 08:38 | PCM.PROG ---
Attending Provider: ATTENDING PROVIDER: Dr. MARIAH HARRISON DATE OF SERVICE: 08/13/19 SUBJECTIVE: This 88 year old /WHITE M was hospitalized 08/06/19 with acute respiratory failure, 2 to 3+ pitting edema patient. Respiratory failure and pitting edema have resolved. Yesterday he became drowsy. CT scan of head is negative. This morning the patient's liver profile is abnormal with indication of obstructive jaundice of sudden onset. The patient doesn't seem to have any abdominal pain. No nausea or vomiting. REVIEW OF SYSTEMS: CONSTITUTIONAL: The patient is drowsy, barely responds to verbal stimulus. No night sweats. No fatigue, malaise, lethargy. No fever or chills. HEENT: Eyes: No visual changes. No eye pain. No eye discharge. ENT: No runny nose. No epistaxis. No sinus pain. No odynophagia. No congestion. RESPIRATORY: No cough, no congestion. No hemoptysis. No shortness of breath. CARDIOVASCULAR: No angina symptoms. No CHF symptoms. No atypical chest pain for CAD. No palpitations. No orthopnea.. GASTROINTESTINAL: No abdominal pain. No nausea or vomiting. No diarrhea or constipation. No hematemesis. No hematochezia. GENITOURINARY: No urgency. No frequency. No dysuria. No hematuria. No obstructive symptoms. No discharge. No pain. No significant abnormal bleeding. MUSCULOSKELETAL: No musculoskeletal pain; no joint swelling. NEUROLOGICAL: No headache. No neck pain. No syncope. No seizures. No dizziness. PSYCHIATRIC: Not anxious. No depression. No suicidal thoughts. No homicidal thoughts. SKIN: No rash. No lesions. No wounds. ENDOCRINE: No unexplained weight loss. No weight gain. HEMATOLOGIC/LYMPHATIC: No anemia. No purpura. No petechiae. No prolonged or excessive bleeding. No palpable lymph nodes. PHYSICAL EXAMINATION: GENERAL: The patient is awake, alert and oriented, lying/sitting in bed in no distress. VITAL SIGNS: Temperature 97.5 F, Pulse 65, Respiratory Rate 20, BP 147/80, Pulse Ox 100% HEENT: Head normocephalic, atraumatic. Eyes: Extraocular muscles are intact. Pupils are equal, round and reactive to light and accommodation. Ears: No lesions. Nose appeared normal. Throat: No exudate or erythema. NECK: Supple. No JVD, no carotid bruit. No lymphadenopathy or thyromegaly. LUNGS: Decreased breath sounds. Clear to auscultation. Percussion note normal. Chest symmetrical. HEART: S1, S2, no S3. No murmurs. No cyanosis or clubbing. No ascites. Pulses: Dorsalis pedis and posterior tibial pulses +1 to +2 both sides. ABDOMEN: Soft. Non-tender. Bowel sounds active. No CVA tenderness. No mass felt. EXTREMITIES: No edema. Full range of motion of all extremities, equal. NEUROLOGIC: No focal deficit. Cranial nerves II through XII are grossly intact. No headache, no double vision or headache. SKIN: Warm and dry. Intact. Turgor-normal. LYMPHATIC: No palpable lymph nodes/no lymphedema. MUSCULOSKELETAL: Normal joints with no swelling. Muscle tone is normal. LAB REVIEW: 08/13/19 04:58 08/13/19 04:58 08/13/19 04:58: Sodium 141.5, Potassium 4.20, Chloride 103.0, Carbon Dioxide 32.2 H, Anion Gap 10.50, BUN 35.5 H, Creatinine 1.15 H, Estimated GFR (MDRD) 60.00, BUN/Creatinine Ratio 30.86, Glucose 128.5 H, Calcium 11.05 H, Total Bilirubin 4.98 H D, AST 225.9 H D, ALT 157.6 H D, Alkaline Phosphatase 269.1 H D , Total Protein 6.88, Albumin 3.56, Globulin 3.32, Albumin/Globulin Ratio 1.07 08/13/19 04:58: WBC 9.66, RBC 3.84 L, Hgb 12.7 L, Hct 40.2 L, MCV 104.7 H, MCH 33.1 H, MCHC 31.6 L, RDW Coeff of Domitila 13.8, Plt Count 84 L, Immature Gran % (Auto) 0.5, Neut % (Auto) 78.8 H, Lymph % (Auto) 9.0 L, Talbot % (Auto) 11.6 H, Eos % (Auto) 0.0, Baso % (Auto) 0.1, Immature Gran # (Auto) 0.1, Neut # (Auto) 7.6 H, Lymph # (Auto) 0.9, Talbot # (Auto) 1.1, Eos # (Auto) 0.0, Baso # (Auto) 0.0 ASSESSMENT: Please see below. Obstructive jaundice type of liver profile of sudden onset, etiology unknown rule out any cholelithiasis. PLAN: 1. Start IV fluids D5 1/[address] scan of abdomen without contrast. 3. Chest x-ray. 4. Rocephin 1 gm. 5. Amylase and lipase. Plan and coordination of the patient's care discussed in the presence of Antenna Installer and nurse. CONDITION: CRITICAL; PROGNOSIS: POOR SCRIBED BY: JUNG ROBINS Business Project Manager scribed while in presence of service performed by Dr. MARIAH HARRISON on 08/13/19 ([id number])
[2019-08-13] MEDS: MIRALAX PO SCH (08:56)
[2019-08-13] MEDS: COZAAR PO SCH ×2 (08:57→20:39)
[2019-08-13] MEDS: ROCEPHIN 1 GM/50 ML D5W 1 GM/50 ML BAG IV SCH (08:57)
[2019-08-13] MEDS: ALDACTONE PO SCH ×2 (08:57→20:40)
[2019-08-13] MEDS: COLACE PO SCH (08:58)
[2019-08-13] MEDS: K-DUR PO SCH (08:58)
[2019-08-13] MEDS: FERROUS SULFATE PO SCH (08:58)
[2019-08-13] MEDS: LOPRESSOR PO SCH ×2 (08:58→20:40)
[2019-08-13] MEDS: ELIQUIS PO SCH ×2 (08:58→20:40)
--- NOTE | 2019-08-13 10:46 | PN ---
DATE OF SERVICE: 08/11/2019 SUBJECTIVE: 88 year old white male hospitalized with acute respiratory failure and possibility of CHF but had 4+ pitting edema. The patient's edema has practically resolved. The problem is still the weakness and needs some physical therapy. REVIEW OF SYSTEMS: CONSTITUTIONAL: No night sweats. No fatigue, malaise, lethargy. No fever or chills. HEENT: Eyes: No visual changes. No eye pain. No eye discharge. ENT: No runny nose. No epistaxis. No sinus pain. No sore throat. No odynophagia. No congestion. RESPIRATORY: No cough, no congestion. No hemoptysis. No shortness of breath. CARDIOVASCULAR: No angina symptoms. No CHF symptoms. No atypical chest pain for CAD. No palpitations. No PND. No orthopnea. GASTROINTESTINAL: No abdominal pain. No nausea or vomiting. No diarrhea or constipation. No hematemesis. No hematochezia. Appetite has improved remarkably. The patient ate the whole lunch portion that was given to him. GENITOURINARY: No urgency. No frequency. No dysuria. No hematuria. No obstructive symptoms. No discharge. No pain. No significant abnormal bleeding. MUSCULOSKELETAL: No musculoskeletal pain; no joint swelling. NEUROLOGICAL: No headache. No neck pain. No syncope. No seizures. No dizziness. PSYCHIATRIC: Not anxious. No depression. No suicidal thoughts. No homicidal thoughts. SKIN: No rash. No lesions. No wounds. ENDOCRINE: No unexplained weight loss. No weight gain. HEMATOLOGIC/LYMPHATIC: No anemia. No purpura. No petechiae. No prolonged or excessive bleeding. No palpable lymph nodes. PHYSICAL EXAMINATION: VITAL SIGNS: Temperature 97.9, pulse 47, respiratory rate 16, blood pressure 122/59 and pulse ox 100% on 2 liters. HEENT: Head normocephalic, atraumatic. Eyes: Extraocular muscles are intact. Pupils are equal, round and reactive to light and accommodation. Ears: No lesions. Nose appeared normal. Throat: No exudate or erythema. NECK: Supple. No JVD, no carotid bruit. No lymphadenopathy or thyromegaly. LUNGS: Decreased breath sounds but clear to auscultation. Percussion note normal. Chest symmetrical. HEART: S1, S2, no S3. Grade I/ systolic murmur. No cyanosis or clubbing. No ascites. Pulses: Dorsalis pedis and posterior tibial pulses +1 to +2 bilaterally. ABDOMEN: Soft. Nontender. Bowel sounds active. No CVA tenderness. No mass felt. EXTREMITIES: +1 pitting edema. Full range of motion of all extremities, equal. NEUROLOGIC: No focal deficit. Cranial nerves II through XII are grossly intact. No headache, no double vision or headache. SKIN: Not dry. Intact. Turgor - normal. LYMPHATIC: No palpable lymph nodes/no lymphedema. MUSCULOSKELETAL: Normal joints with no swelling. Muscle tone is normal. LABS: Hgb 11.98, hct 38, WBC 30,800 normal differential, creatinine 1.1, BUN 36, potassium 4.3 ASSESSMENT: 1. Leg edema, 4+ pitting has gone down to 1+ 2. Respiratory failure seems to have resolved 3. CHF under control 4. Atrial fibrillation with varying ventricular rate causing more than second of pause PLAN: 1. Continue NEBS 2. Continue PO Lasix 40mg, she used to be on 20mg 3. The patient is on Aldactone 4. Discontinue Potassium supplements 5. Continue Cozaar and Amlodipine 6. Eliquis needs to be continued for atrial fibrillation CONDITION: Stable. The patient is going to be evaluated for swing bed if swing bed committee doesn't accept him then patient's family wants him to go to special unit at [facility] if possible otherwise they are going to go home. It is going to be difficult for patient's to take care of him at home. TIME SPENT: More than 30 minutes. Plan and coordination of the patient's care discussed in the presence of nurse. BHAVANA
--- NOTE | 2019-08-13 10:56 | DI ---
EXAM: Chest one view HISTORY: Congestion COMPARISON: 08/06/2019 TECHNIQUE: Single view of the chest was performed FINDINGS: Stable heart size and mediastinal contour. Atherosclerotic calcifications. Low lung volu mes. No consolidation. Mild left perihilar peribronchial thickening. No definite pleural effusion. No pneumothorax. No acute abnormalities of the bones. IMPRESSION: . Mild left perihilar peribronchial thickening, which may represent small airways infec tion/inflammation.
--- NOTE | 2019-08-13 14:31 | CT ---
EXAM: CT Abdomen Pelvis Without contra HISTORY: . Elevated liver enzymes, abdominal pain COMPARISON: 07/16/2017 TECHNIQUE: CT of the Abdomen Pelvis was performed Without contrast. Coronal and sagital reformats we re obtained. FINDINGS: Motion artifact degrades evaluation of the lung bases. The heart is enlarged. Coronary calcificatio ns. Right greater than left lower lung. Mild peribronchial thickening. Small left pleural effusion . Mild right lower lower lobe subsegmental atelectasis. Left IV contrast limits evaluation of parenchyma. No discrete liver abnormality. Dilated gallbladde r with multiple dependent calcified gallstones. The spleen, pancreas and adrenals are unremarkable. Nonspecific symmetric mild perinephric fat stranding bilaterally. Nonobstructive bilateral renal ca lculi . No hydronephrosis. Normal bladder. No bowel obstruction. Moderate colorectal stool volume . Appendix is normal. No adenopathy. Normal diameter of the tortuous aorta. Moderate/extensive atherosclerotic calcifications. Ectatic le ft common iliac artery measures 1.8 cm short axis (axial 63). Ectatic right common iliac artery italo ures 1.6 cm. Infrarenal IVC filter is similarly positioned. No abnormal fluid collection, free fluid or free air. No acute osseous abnormality. Left hip arthroplasty with corresponding streak artifac t degrading evaluation of local structures. Multilevel lumbar spondylosis. IMPRESSION: 1. No acute intra-abdominal findings. 2. Nonspecific gallbladder dilation with multiple calcified gallstones. If clinically indicated, ul trasound could further evaluate. 3. Moderate colorectal stool volume. 4. Nonobstructive bilateral renal calculi versus vascular calcifications. 5. Right greater than left lower lung peribronchial thickening, suggestive of small airways infectio n/inflammation. 6. Small left pleural effusion. Mild right basilar subsegmental atelectasis. 7. Cardiomegaly and atherosclerosis. 8. Ectasia of the left greater than right common iliac arteries. 9. Multilevel lumbar spondylosis.
--- NOTE | 2019-08-13 14:51 | PN ---
DATE OF SERVICE: 08/10/19 SUBJECTIVE: 88-year-old white male hospitalized with 4+ pitting edema and respiratory insufficiency with possibility of CHF. The patient's condition has steadily improved, not it is stable. The is present in the room. She is happy with the progress. REVIEW OF SYSTEMS: CONSTITUTIONAL: No night sweats. No fatigue, malaise, lethargy. No fever or chills. HEENT: Eyes: No visual changes. No eye pain. No eye discharge. ENT: No runny nose. No epistaxis. No sinus pain. No sore throat. No odynophagia. No congestion. RESPIRATORY: No cough, no congestion. No hemoptysis. No shortness of breath. CARDIOVASCULAR: No angina symptoms. No CHF symptoms. No atypical chest pain for CAD. No palpitations. No PND. No orthopnea. GASTROINTESTINAL: No abdominal pain. No nausea or vomiting. No diarrhea or constipation. No hematemesis. No hematochezia. GENITOURINARY: No urgency. No frequency. No dysuria. No hematuria. No obstructive symptoms. No discharge. No pain. No significant abnormal bleeding. MUSCULOSKELETAL: No musculoskeletal pain; no joint swelling. NEUROLOGICAL: She seems to be alert but mildly confused, not paying attention to the details about anything. No headache. No neck pain. No syncope. No seizures. No dizziness. PSYCHIATRIC: Not anxious. No depression. No suicidal thoughts. No homicidal thoughts. SKIN: No rash. No lesions. No wounds. ENDOCRINE: No unexplained weight loss. No weight gain. HEMATOLOGIC/LYMPHATIC: No anemia. No purpura. No petechiae. No prolonged or excessive bleeding. No palpable lymph nodes. PHYSICAL EXAMINATION: VITAL SIGNS: Temperature 98, pulse 62, respiratory rate 18, BP 136/82, pulse ox 99%. HEENT: Head normocephalic, atraumatic. Eyes: Extraocular muscles are intact. Pupils are equal, round and reactive to light and accommodation. Ears: No lesions. Nose appeared normal. Throat: No exudate or erythema. NECK: Supple. No JVD, no carotid bruit. No lymphadenopathy or thyromegaly. LUNGS: Decreased breath sounds but clear to auscultation. Percussion note normal. Chest symmetrical. HEART: S1, S2, no S3. No murmurs. No cyanosis or clubbing. No ascites. Pulses: Dorsalis pedis and posterior tibial pulses +1 to +2 bilaterally. ABDOMEN: Soft. Nontender. Bowel sounds active. No CVA tenderness. No mass felt. EXTREMITIES: +1 to +2 pitting edema. Full range of motion of all extremities, equal. NEUROLOGIC: No focal deficit. Cranial nerves II through XII are grossly intact. No headache, no double vision or headache. SKIN: Not dry. Intact. Turgor - normal. LYMPHATIC: No palpable lymph nodes/no lymphedema. MUSCULOSKELETAL: Normal joints with no swelling. Muscle tone is normal. LABS: Hemoglobin 12.2, hematocrit 38, WBC 5,700, normal differential. Creatinine 1, BUN 33, potassium 3.9. ASSESSMENT: GENERALIZED EDEMA, SEEMS TO BE RESOLVING BUT STABLE NOW. THE PATIENT IS ON COMBINATION OF LASIX AND ALDACTONE. POTASSIUM IS STABLE. KIDNEY FUNCTIONS ARE ACCEPTABLE. The patient's echo showed LV contractility being hypokinetic with ejection fraction 45%. LVH noted with markedly enlarged LA cavity. PLAN: 1. Continue the rest of the medication as before. 2. The patient is being given Physical Therapy for ambulation and increase in strength. 3. Discussion took place with the , will put the patient's case to swing bed, possibility of physical therapy exists. She is also willing to let the [facility] but I indicated that the patient needs to be in the [facility]. He is very difficult to be taken care of at home. TIME SPENT: More than 30 minutes. Plan and coordination of the patient's care discussed in the presence of nurse. BHAVANA
[2019-08-13] MEDS: PRAVACHOL PO SCH (20:40)
[2019-08-13] MEDS: SEROQUEL PO SCH (20:40)
[2019-08-13] MEDS: NORVASC PO SCH (20:40)
[2019-08-14] MEDS: PRILOSEC PO SCH (06:08)
[2019-08-14] MEDS: LASIX TAB PO SCH (06:08)
[2019-08-14 06:12] LABS: HEMATOCRIT 40.1 % (42.0-52.0)
[2019-08-14] MEDS: ROCEPHIN 1 GM/50 ML D5W 1 GM/50 ML BAG IV SCH (08:50)
[2019-08-14] MEDS: K-DUR PO SCH (08:50)
[2019-08-14] MEDS: LOPRESSOR PO SCH ×2 (08:50→20:11)
[2019-08-14] MEDS: COZAAR PO SCH ×2 (08:50→20:10)
[2019-08-14] MEDS: MIRALAX PO SCH (08:50)
[2019-08-14] MEDS: ELIQUIS PO SCH ×2 (08:51→20:11)
[2019-08-14] MEDS: ALDACTONE PO SCH ×2 (08:51→20:10)
[2019-08-14] MEDS: FERROUS SULFATE PO SCH (08:51)
[2019-08-14] MEDS: COLACE PO SCH (08:51)
[2019-08-14] MEDS: DEXTROSE 5%-1/2NS IV SOLUTION 1,000 ML IV SCH ×2 (11:49→22:12)
[2019-08-14] MEDS: SEROQUEL PO SCH (20:11)
[2019-08-14] MEDS: NORVASC PO SCH (20:11)
[2019-08-15] MEDS: PRILOSEC PO SCH (05:34)
[2019-08-15] MEDS: LASIX TAB PO SCH (05:34)
[2019-08-15 06:13] LABS: HEMATOCRIT 38.5 % (42.0-52.0)
[2019-08-15] MEDS: ROCEPHIN 1 GM/50 ML D5W 1 GM/50 ML BAG IV SCH (08:21)
[2019-08-15] MEDS: K-DUR PO SCH (08:26)
[2019-08-15] MEDS: DEXTROSE 5%-1/2NS IV SOLUTION 1,000 ML IV SCH ×3 (08:27→22:17)
[2019-08-15] MEDS: LOPRESSOR PO SCH ×2 (08:27→20:31)
[2019-08-15] MEDS: COZAAR PO SCH ×2 (08:27→20:31)
[2019-08-15] MEDS: COLACE PO SCH (08:27)
[2019-08-15] MEDS: ELIQUIS PO SCH ×2 (08:28→20:32)
[2019-08-15] MEDS: FERROUS SULFATE PO SCH (08:28)
[2019-08-15] MEDS: ALDACTONE PO SCH ×2 (08:28→20:32)
[2019-08-15] MEDS: MIRALAX PO SCH (08:28)
--- NOTE | 2019-08-15 08:40 | PN ---
DATE OF SERVICE: 08/14/2019 SUBJECTIVE: 88 year old white male hospitalized with bilateral leg edema +4 with early probably CHF. The patient's condition seemed to have improved but two days ago the patient got obtunded and poorly responsive for at least 24 hours. The patient's condition improved remarkably the following day and today also he is up, alert and eating normally with no nausea or vomiting and no abdominal pain. The patient's labs yesterday showed obstructive jaundice. Today the patient's labs showed some improvement. The patient's CT scan of the abdomen yesterday showed cholelithiasis with dilated gallbladder, no other acute findings noted. The patient's is sitting in the room. REVIEW OF SYSTEMS: CONSTITUTIONAL: No night sweats. No fatigue, malaise, lethargy. No fever or chills. HEENT: Eyes: No visual changes. No eye pain. No eye discharge. ENT: No runny nose. No epistaxis. No sinus pain. No sore throat. No odynophagia. No congestion. RESPIRATORY: No cough, no congestion. No hemoptysis. No shortness of breath. CARDIOVASCULAR: No angina symptoms. No CHF symptoms. No atypical chest pain for CAD. No palpitations. No PND. No orthopnea. GASTROINTESTINAL: No abdominal pain. No nausea or vomiting. No diarrhea or constipation. No hematemesis. No hematochezia. Appetite seems to be improving. Had good breakfast. GENITOURINARY: No urgency. No frequency. No dysuria. No hematuria. No obstructive symptoms. No discharge. No pain. No significant abnormal bleeding. MUSCULOSKELETAL: No musculoskeletal pain; no joint swelling. NEUROLOGICAL: No headache. No neck pain. No syncope. No seizures. No dizziness. PSYCHIATRIC: Not anxious. No depression. No suicidal thoughts. No homicidal thoughts. SKIN: No rash. No lesions. No wounds. ENDOCRINE: No unexplained weight loss. No weight gain. HEMATOLOGIC/LYMPHATIC: No anemia. No purpura. No petechiae. No prolonged or excessive bleeding. No palpable lymph nodes. PHYSICAL EXAMINATION: VITAL SIGNS: Temperature 97.7, pulse 53, respiratory rate 18, blood pressure 119/67 and pulse ox 98%. HEENT: Head normocephalic, atraumatic. Eyes: Extraocular muscles are intact. Pupils are equal, round and reactive to light and accommodation. Ears: No lesions. Nose appeared normal. Throat: No exudate or erythema. NECK: Supple. No JVD, no carotid bruit. No lymphadenopathy or thyromegaly. LUNGS: Decreased breath sounds but clear to auscultation. Percussion note normal. Chest symmetrical. HEART: S1, S2, no S3. No murmurs. No cyanosis or clubbing. No ascites. Pulses: Dorsalis pedis and posterior tibial pulses +1 to +2 bilaterally. ABDOMEN: Soft. Nontender. Bowel sounds active. No CVA tenderness. No mass felt. EXTREMITIES: No edema. Full range of motion of all extremities, equal. NEUROLOGIC: No focal deficit. Cranial nerves II through XII are grossly intact. No headache, no double vision or headache. SKIN: Not dry. Intact. Turgor - normal. LYMPHATIC: No palpable lymph nodes/no lymphedema. MUSCULOSKELETAL: Normal joints with no swelling. Muscle tone is normal. LABS: Hgb 13, hct 40, WBC 5,900 normal differential, creatinine 1, BUN 32, potassium 3.6. The patient has heavy growth of negative rods in the urine. ASSESSMENT: 1. Gallbladder colic with obstructive jaundice which seems to be resolving, symptoms absent 2. CHF 3. Coronary bypass surgery with ischemic cardiomyopathy 4. Chronic lung disease 5. Dementia 6. Gram negative rods in the urine PLAN: 1. Continue Rocephin 2. Awaiting culture sensitivity report 3. IV fluids 4. Continue to monitor patient's symptoms 5. Again discussed the case with the . She is very pleased with the patient's progress and the care given here and she does not want the patient any further evaluation especially surgical in the absence of gallbladder symptoms. In fact the is willing to take the patient to the long term. She is unable to take care of him at home. The patient has been to the long term in the past and had recovered with good physical therapy. CONDITION: Stable PROGNOSIS: Guarded. TIME SPENT: More than 30 minutes. Plan and coordination of the patient's care discussed in the presence of nurse. BHAVANA
--- NOTE | 2019-08-15 08:43 | PCM.PROG ---
Attending Provider: ATTENDING PROVIDER: Dr. MARIAH HARRISON DATE OF SERVICE: 08/15/19 SUBJECTIVE: This 88 year old /WHITE M was hospitalized 08/06/19 with +3 pitting edema, maybe early CHF. The patient's new problem is obstructive jaundice likely from cholelithiasis. The patient is practically asymptomatic from cholelithiasis. REVIEW OF SYSTEMS: CONSTITUTIONAL: No night sweats. No fatigue, malaise, lethargy. No fever or chills. HEENT: Eyes: No visual changes. No eye pain. No eye discharge. ENT: No runny nose. No epistaxis. No sinus pain. No odynophagia. No congestion. RESPIRATORY: No cough, no congestion. No hemoptysis. No shortness of breath. CARDIOVASCULAR: No angina symptoms. No CHF symptoms. No atypical chest pain for CAD. No palpitations. No orthopnea.. GASTROINTESTINAL: Appetite has improved. No abdominal pain. No nausea or vomiting. No diarrhea or constipation. No hematemesis. No hematochezia. GENITOURINARY: No urgency. No frequency. No dysuria. No hematuria. No obstructive symptoms. No discharge. No pain. No significant abnormal bleeding. MUSCULOSKELETAL: No musculoskeletal pain; no joint swelling. NEUROLOGICAL: Awake, alert, oriented to time, place and person. No headache. No neck pain. No syncope. No seizures. No dizziness. PSYCHIATRIC: Not anxious. No depression. No suicidal thoughts. No homicidal thoughts. SKIN: No rash. No lesions. No wounds. ENDOCRINE: No unexplained weight loss. No weight gain. HEMATOLOGIC/LYMPHATIC: No anemia. No purpura. No petechiae. No prolonged or excessive bleeding. No palpable lymph nodes. PHYSICAL EXAMINATION: GENERAL: The patient is awake, alert and oriented, lying/sitting in bed in no distress. VITAL SIGNS: Temperature 98.1 F, Pulse 75, Respiratory Rate 18, BP 153/81, P ulse Ox 96% HEENT: Head normocephalic, atraumatic. Eyes: Extraocular muscles are intact. Pupils are equal, round and reactive to light and accommodation. Ears: No lesions. Nose appeared normal. Throat: No exudate or erythema. NECK: Supple. No JVD, no carotid bruit. No lymphadenopathy or thyromegaly. LUNGS: Decreased breath sounds. Clear to auscultation. Percussion note normal. Chest symmetrical. HEART: S1, S2, no S3. No murmurs. No cyanosis or clubbing. No ascites. Pulses: Dorsalis pedis and posterior tibial pulses +1 to +2 both sides. ABDOMEN: Soft. Non-tender. Bowel sounds active. No CVA tenderness. No mass felt. EXTREMITIES: No edema. Full range of motion of all extremities, equal. NEUROLOGIC: No focal deficit. Cranial nerves II through XII are grossly intact. No headache, no double vision or headache. SKIN: Warm and dry. Intact. Turgor-normal. LYMPHATIC: No palpable lymph nodes/no lymphedema. MUSCULOSKELETAL: Normal joints with no swelling. Muscle tone is normal. LAB REVIEW: 08/15/19 04:55 08/15/19 04:55 08/15/19 04:55: Sodium 139.5, Potassium 3.43 L, Chloride 106.9, Carbon Dioxide 26.2, Anion Gap 9.83, BUN 24.2 H, Creatinine 0.96, Estimated GFR (MDRD) 74.00, BUN/Creatinine Ratio 25.20, Glucose 112.5 H, Calcium 10.27 H, Total Bilirubin 4.39 H, AST 184.8 H, ALT 185.0 H, Alkaline Phosphatase 339.9 H D, Total Protein 6.74, Albumin 3.32 L, Globulin 3.42, Albumin/Globulin Ratio 0.97 08/15/19 04:55: WBC 5.10, RBC 3.88 L, Hgb 12.6 L, Hct 38.5 L, MCV 99.2 H, MCH 32.5 H, MCHC 32.7, RDW Coeff of Domitila 13.7, Plt Count 102 L, Immature Gran % (A uto) 0.2, Neut % (Auto) 61.9, Lymph % (Auto) 18.4, [place] % (Auto) 17.1 H, Eos % (Auto) 2.0, Baso % (Auto) 0.4, Immature Gran # (Auto) 0.0, Neut # (Auto) 3.2, Lymph # (Auto) 0.9, [place] # (Auto) 0.9, Eos # (Auto) 0.1, Baso # (Auto) 0.0 ASSESSMENT: Please see below. 1. Obstructive jaundice improving. 2. UTI with E. coli sensitive to all antibiotics. 3. Leg edema has subsided. PLAN: 1. Anticipate discharge to [facility] today or tomorrow. 2. Continue IV fluids. 3. Continue IV antibiotics. 4. As the patient is asymptomatic from gallbladder disease, the family and I have decided for the patient maybe later on to have surgical evaluation which I doubt as patient is a poor surgical candidate. Plan and coordination of the patient's care discussed in the presence of Marking Devices Assembler and nurse. CONDITION: At present time condition is stable. Prognosis is poor. SCRIBED BY: JUNG ROBINS Bar Machine Operator Production scribed while in presence of service performed by Dr. MARIAH HARRISON on 08/15/19 ([id number])
[2019-08-15] MEDS: SEROQUEL PO SCH (20:31)
[2019-08-15] MEDS: NORVASC PO SCH (20:32)
[2019-08-16 04:17] VITALS: BP 139/89; TEMP 98.1
[2019-08-16 05:19] LABS: HEMATOCRIT 39.7 % (42.0-52.0)
[2019-08-16] MEDS: PRILOSEC PO SCH (05:38)
[2019-08-16] MEDS: LASIX TAB PO SCH (05:39)
--- NOTE | 2019-08-16 09:28 | PCM.PROG ---
Attending Provider: ATTENDING PROVIDER: Dr. MARIAH HARRISON DATE OF SERVICE: 08/16/19 SUBJECTIVE: This 88 year old /WHITE M was hospitalized 08/06/19 with leg edema, +3 pitting maybe from early CHF. The patient developed acute cholecystitis or colic with obstructive jaundice during stay in hospital. Condition has clinically improved. Appetite is good, eating well no abdominal pain. Normal bowel mo vements. Liver enzymes are slowly improving considering the patient's multiple end-stage medical problems. The along with health care providers have decided to treat patient conservatively unless the patient has acute problems which he doesn't. REVIEW OF SYSTEMS: CONSTITUTIONAL: No night sweats. No fatigue, malaise, lethargy. No fever or chills. HEENT: Eyes: No visual changes. No eye pain. No eye discharge. ENT: No runny nose. No epistaxis. No sinus pain. No odynophagia. No congestion. RESPIRATORY: No cough, no congestion. No hemoptysis. No shortness of breath. CARDIOVASCULAR: No angina symptoms. No CHF symptoms. No atypical chest pain for CAD. No palpitations. No orthopnea.. GASTROINTESTINAL: No abdominal pain. No nausea or vomiting. No diarrhea or con stipation. No hematemesis. No hematochezia. GENITOURINARY: No urgency. No frequency. No dysuria. No hematuria. No obstructive symptoms. No discharge. No pain. No significant abnormal bleeding. MUSCULOSKELETAL: No musculoskeletal pain; no joint swelling. NEUROLOGICAL: No headache. No neck pain. No syncope. No seizures. No dizziness. PSYCHIATRIC: Not anxious. No depression. No suicidal thoughts. No homicidal thoughts. SKIN: No rash. No lesions. No wounds. ENDOCRINE: No unexplained weight loss. No weight gain. HEMATOLOGIC/LYMPHATIC: No anemia. No purpura. No petechiae. No prolonged or excessive bleeding. No palpable lymph nodes. PHYSICAL EXAMINATION: GENERAL: The patient is lying/sitting in bed in no distress. VITAL SIGNS: Temperature 98.1 F, Pulse 70, Respiratory Rate 18, BP 139/89, Pulse Ox 96% HEENT: Head normocephalic, atraumatic. Eyes: Extraocular muscles are intact. Pupils are equal, round and reactive to light and accommodation. Ears: No lesions. Nose appeared normal. Throat: No exudate or erythema. NECK: Supple. No JVD, no carotid bruit. No lymphadenopathy or thyromegaly. LUNGS: Clear to auscultation. Percussion note normal. Chest symmetrical. HEART: S1, S2, no S3. No murmurs. No cyanosis or clubbing. No ascites. Pulses: Dorsalis pedis and posterior tibial pulses +1 to +2 both sides. ABDOMEN: Soft. Non-tender. Bowel sounds active. No CVA tenderness. No mass felt. EXTREMITIES: No edema. Full range of motion of all extremities, equal. NEUROLOGIC: No focal deficit. Cranial nerves II through XII are grossly intact. No headache, no double vision or headache. SKIN: Warm and dry. Intact. Turgor-normal. LYMPHATIC: No palpable lymph nodes/no lymphedema. MUSCULOSKELETAL: Normal joints with no swelling. Muscle tone is normal. LAB REVIEW: 08/16/19 04:43 08/16/19 04:43 08/16/19 04:43: Sodium 141.2, Potassium 3.77, Chloride 108.1 H, Carbon Dioxide 26.6, Anion Gap 10.27, BUN 23.9 H, Creatinine 0.94, Estimated GFR (MDRD) 76.00, BUN/Creatinine Ratio 25.42, Glucose 99.9, Calcium 10.69 H, Total Bilirubin 4.31 H, AST 126.4 H D, ALT 167.6 H, Alkaline Phosphatase 347.2 H, Total Protein 7.06, Albumin 3.36 L, Globulin 3.70, Albumin/Globulin Ratio 0.90 08/16/19 04:43: WBC 4.00 L, RBC 3.99 L, Hgb 13.1 L, Hct 39.7 L, MCV 99.5 H, MCH 32.8 H, MCHC 33.0, RDW Coeff of Domitila 13.8, Plt Count 111 L, Immature Gran % (Auto) 0.3, Neut % (Auto) 55.3, Lymph % (Auto) 25.8, [place] % (Auto) 15.3 H, Eos % (Auto) 2.8, Baso % (Auto) 0.5, Immature Gran # (Auto) 0.0, Neut # (Auto) 2.2, Lymph # (Auto) 1.0, [place] # (Auto) 0.6, Eos # (Auto) 0.1, Baso # (Auto) 0.0 ASSESSMENT: Please see below. 1. Cholelithiasis at present time asymptomatic. Clinically no evidence of cholecystitis. 2. UTI with gram negative rods. 3. CHF. 4. CABG. 5. Dementia. PLAN: 1. US of right upper quadrant. 2. The patient is DNI 3. Likely will discharge home. 4. Continue all medications. 5. The [facility] is [facility] to [facility] as is unable to take care of him at home. She is hoping that patient will get PT with some improvement and at that point, she may take him home but is up to her. Plan and coordination of the patient's care discussed in the presence of Middle School Pe Teacher and nurse. CONDITION: Stable. Prognosis is poor. SCRIBED BY: JUNG ROBINS Indoor Landscaper/Gardener scribed while in presence of service performed by Dr. MARIAH HARRISON on 08/16/19 ([id number])
--- NOTE | 2019-08-16 10:32 | US ---
EXAM: Limited abdominal sonogram. HISTORY: Gallbladder, jaundice TECHNIQUE: Real time with duplex. COMPARISON: CT dated 08/13/2019 FINDINGS: Exam is degraded by bowel gas shadowing. The liver measures up to 11.7 cm in length. The liver demonstrates normal echogencity. Possible mil d intrahepatic biliary dilation. The portal vein is patent and antegrade. Pancreas is not well visualized due to bowel gas shadowing.. The gallbladder is dilated measuring approximately 5 cm in diameter. The wall is thickened measuring 0.37 cm. Echogenic sludge and stones seen within the gallbladder. The common bile duct measures 0. 62 cm. Right kidney is not well visualized secondary to bowel gas shadowing. IMPRESSION: 1. Dilated gallbladder with cholelithiasis and wall thickening, highly concerning for acute cholecys titis. Surgical evaluation recommended. 2. Possible mild intrahepatic biliary ductal dilation. No obstruction visualized.
[2019-08-16] MEDS: DEXTROSE 5%-1/2NS IV SOLUTION 1,000 ML IV SCH (10:46)
[2019-08-16] MEDS: ALDACTONE PO SCH (10:48)
[2019-08-16] MEDS: MIRALAX PO SCH (10:48)
[2019-08-16] MEDS: COLACE PO SCH (10:48)
[2019-08-16] MEDS: K-DUR PO SCH (10:48)
[2019-08-16] MEDS: FERROUS SULFATE PO SCH (10:48)
[2019-08-16] MEDS: COZAAR PO SCH (10:48)
[2019-08-16] MEDS: LOPRESSOR PO SCH (10:49)
[2019-08-16] MEDS: ELIQUIS PO SCH (10:49)
--- NOTE | 2019-08-16 14:04 | CM.DICTOOL ---
ADMISSION: 08/06/19 01:20 DISCHARGE: AUGUST 16, 2019 DATE OF SERVICE: 08/16/19 FINAL DIAGNOSIS ACUTE RESPIRATORY FAILURE,RESOLVED LEG EDEMA, DEPENDENT ACUTE CHOLECYSTITIS WITH CHOLELITHIASIS UTI, E-COLI ATRIAL FIB (ON ELIQUIS) CHRONIC KIDNEY DISEASE DEMENTIA RECENT FALL CAD HYPERTENSION HISTORY OF PULMONARY EMBOLUS GERD DYSLIPIDEMIA ARTHRITIS DEGENERATIVE DISC DISEASE HISTORY OF CHOLELITHIASIS HIP REPLACEMENT IVC FILTER CABG LAST VITALS Temp Pulse Resp BP Pulse Ox 98.1 F 70 18 139/89 96 08/16/19 04:15 08/16/19 04:15 08/16/19 04:15 08/16/19 04:15 08/16/19 10:00 TAKE THESE MEDICATIONS AT HOME Amlodipine Besylate (Norvasc) 5 mg PO BEDTIME [facility] Last Admin: 08/15/19 20:32 Dose: 5 mg Documented by: Apixaban (Eliquis) 5 mg PO BID [facility] Last Admin: 08/16/19 10:49 Dose: 5 mg Documented by: Docusate Sodium (Colace) 100 mg PO DAILY [facility] Last Admin: 08/16/19 10:48 Dose: 100 mg Documented by: Ferrous Sulfate (Ferrous Sulfate) 324 mg PO DAILY [facility] Last Admin: 08/16/19 10:48 Dose: 324 mg Documented by: Furosemide (Lasix Tab) 40 mg PO QDAC [facility] Last Admin: 08/16/19 05:39 Dose: 40 mg Documented by: Losartan Potassium (Cozaar) 50 mg PO BID [facility] Last Admin: 08/16/19 10:48 Dose: 50 mg Documented by: Metoprolol Tartrate (Lopressor) 25 mg PO BID [facility] Last Admin: 08/16/19 10:49 Dose: 25 mg Documented by: Omeprazole (Prilosec) 20 mg PO DAILY@0630 [facility] Last Admin: 08/16/19 05:38 Dose: 20 mg Documented by: Polyethylene Glycol (Miralax) 17 gm PO DAILY [facility] Last Admin: 08/16/19 10:48 Dose: 17 gm Documented by: Potassium Chloride (K-Dur) 20 meq PO DAILYWM [facility] Last Admin: 08/16/19 10:48 Dose: 20 meq Documented by: Quetiapine Fumarate (Seroquel) 25 mg PO BEDTIME [facility] Last Admin: 08/15/19 20:31 Dose: 25 mg Documented by: Spironolactone (Aldactone) 25 mg PO DAILY [facility] Last Admin: 08/16/19 10:48 Dose: 25 mg Documented by: ALLERGIES diazepam [From Valium] Adverse Reaction (Verified 08/06/19 00:52) hydrocodone Adverse Reaction (Verified 08/06/19 00:52) PAPER TAPE Adverse Reaction (Uncoded 08/06/19 00:52) DISCONTINUED MEDICATIONS PRAVASTATIN NEW PRESCRIPTIONS: KEFLEX 500 MG TID FOR 5 DAYS, START TONIGHT NORVASC 5 MG PO AT BEDTIME DAILY COZAAR 50 MG PO BID ALDACTONE 25 MG PO DAILY SMOKING: NOT APPLICABLE DISEASE SPECIFIC EDUCATION: PATIENT ALERT TO PERSON ONLY TEACHING PROVIDED BY DR. HARRSION TO MRS. CRUZ REGARDING CHOLELITHIASIS LAB REVIEW: 08/16/19 04:43 08/16/19 04:43 08/16/19 04:43: Sodium 141.2, Potassium 3.77, Chloride 108.1 H, Carbon Dioxide 26.6, Anion Gap 10.27, BUN 23.9 H, Creatinine 0.94, Estimated GFR (MDRD) 76.00, BUN/Creatinine Ratio 25.42, Glucose 99.9, Calcium 10.69 H, Total Bilirubin 4.31 H, AST 126.4 H D, ALT 167.6 H, Alkaline Phosphatase 347.2 H, Total Protein 7.06, Albumin 3.36 L, Globulin 3.70, Albumin/Globulin Ratio 0.90 08/16/19 04:43: WBC 4.00 L, RBC 3.99 L, Hgb 13.1 L, Hct 39.7 L, MCV 99.5 H, MCH 32.8 H, MCHC 33.0, RDW Coeff of Domitila 13.8, Plt Count 111 L, Immature Gran % (Auto) 0.3, Neut % (Auto) 55.3, Lymph % (Auto) 25.8, [place] % (Auto) 15.3 H, Eos % (Auto) 2.8, Baso % (Auto) 0.5, Immature Gran # (Auto) 0.0, Neut # (Auto) 2.2, Lymph # (Auto) 1.0, [place] # (Auto) 0.6, Eos # (Auto) 0.1, Baso # (Auto) 0.0 PLAN: DISCHARGE TO [facility] DIET: LOW FAT, AT LEAST 5 SMALL MEALS DAILY, REGULAR CONSISTENCY AND TEXTURE LIQUIDS REGULAR ACTIVITY: UP TO CHAIR; ELEVATE LEGS WHEN SITTING DINING ROOM FOR MEALS, PATIENT FEEDS SELF SLOWLY PHYSICAL THERAPY EVALUATION; PATIENT UTILIZES WALKER OCCUPATIONAL THERAPY EVALUATION VITAL SIGNS DAILY FOR 1 WEEK, THEN WEEKLY OXYGEN SATURATION DAILY FOR 1 WEEK, THEN WEEKLY INCONTINENT CARE PRN DECUBITUS PRECAUTIONS CBC, CMP ON MONDAY () AND THEN WEEKLY TSH, LIPIDS EVERY 6 MONTHS CODE STATUS: CPR ONLY, DO NOT INTUBATE THE PATIENT TO BE SEEN ON SENIOR CARE ROUNDS BY / TIGRE CRUZ APRN IN 5-7 DAYS MR. CRUZ IS ALERT TO PERSON. HE IS PLEASANT AND COOPERATIVE, BUT IS HARD OF HEARING. MRS. CRUZ IS AWARE AND AGREEABLE TO PLANS FOR DISCHARGE TO [facility]. MRS. CRUZ MADE THE DECISION TO PURSUE PLACEMENT AT [facility] HOPING HE WOULD REGAIN HIS ABILITY TO RETURN HOME AND AMBULATE WITH ONLY HER TO ASSIST. MR. CRUZ IS PARTIALLY DEPENDENT FOR ACTIVITIES OF DAILY LIVING. HE REQUIRES BATHING BY NURSING STAFF. HE IS ABLE TO TURN SELF, BUT REQUIRES ASSISTANCE WITH BED MOBILITY AND WITH TRANSFERS FROM THE BED TO THE CHAIR. HE IS AMBULATORY WITH USE OF A ROLLING WALKER AND STAFF ASSIST OF ONE TO THE BATHROOM, BUT REQUIRES ASSISTANCE OF TWO STAFF MEMBERS FOR AMBULATION IN THE HALLWAY. HE TRANSFERS WITH ASSISTANCE OF ONE TO THE BEDSIDE CHAIR. MR. CRUZ FEEDS HIMSELF, BUT REQUIRES ASSISTANCE WITH OPENING CONTAINERS, CUTTING FOOD ITEMS. HE FEEDS HIMSELF, BUT EATS SLOWLY. MEAL INTAKES HAVE BEEN 50-100%. HE IS BOTH CONTINENT AND INCONTINENT OF URINE. HE HAS BEEN CONTINENT OF BOWEL. THE LAST BOWEL MOVEMENT WAS YESTERDAY, MODERATE TO LARGE AMOUNT OF SOFT GREENISH STOOL. SKIN IS JAUNDICED TO FACE, TRUNK AND UPPER THIGHS. NO SKIN BREAKDOWN IS NOTED. MD TIGRE ASHLEY APRN
--- NOTE | 2019-08-16 14:20 | PN ---
DATE OF SERVICE: 08/13/19 SUBJECTIVE: Mr. Irwin was seen and examined this afternoon after I was done in my office. The patient's CT scan of the abdomen showed no acute findings but showed multiple calcified stones. The gallbladder seems to be distended but otherwise no acute findings or dilated biliary duct noted. PHYSICAL EXAMINATION: (In the afternoon at approximately 4:30 p.m.) GENERAL: The patient was oriented to time, place and person. HEENT: Head normocephalic, atraumatic. Eyes: Extraocular muscles are intact. Pupils are equal, round and reactive to light and accommodation. Ears: No lesions. Nose appeared normal. Throat: No exudate or erythema. NECK: Supple. No JVD, no carotid bruit. No lymphadenopathy or thyromegaly. LUNGS: Clear to auscultation. Percussion note normal. Chest symmetrical. HEART: S1, S2, no S3. No murmurs. No cyanosis or clubbing. No ascites. Pulses: Dorsalis pedis and posterior tibial pulses +1 to +2 bilaterally. ABDOMEN: Flat. Soft. Nontender. Bowel sounds active. No CVA tenderness. No mass felt. EXTREMITIES: No edema. Full range of motion of all extremities, equal. NEUROLOGIC: No focal deficit. Cranial nerves II through XII are grossly intact. No headache, no double vision or headache. SKIN: Not dry. Intact. Turgor - normal. LYMPHATIC: No palpable lymph nodes/no lymphedema. MUSCULOSKELETAL: Normal joints with no swelling. Muscle tone is normal. I explained the results of the CT scan to the . The patient was oriented to person but confused to the time. After explanation the patient's has agreed with me that thre was no point in doing anything at the present time. He is practically asymptomatic. He is already on IV fluids, soft diet, IV antibiotics. His gallbladder colic with some obstructive problems has subsided. As long as his condition is stable, good appetite, good oral intake so far this morning and this afternoon, would probably be best to leave him alone. He has multiple medical problems and a very poor surgical candidate. ADDENDUM: The patient's came to the office this morning and I had discussion with her about his DNR status. During the discussion she agreed to not to put patient on respirator or intubate him, just to CPR with no intubation so DNI. Communicated that order with family service caseworker. TIME SPENT: Face to face with family and patient nearly 80 minutes. Plan and coordination of the patient's care discussed in the presence of nurse. BHAVANA
--- NOTE | 2019-08-16 14:22 | PN ---
BILLING 08/12/19 EXTENSIVE 08/13/19 EXTENSIVE - nearly 80 minutes face to face with family and patient. [facility]
--- NOTE | 2019-08-20 13:11 | PN ---
08/06/2019: Level 5 The patient has two days where the patient had extensive. 08/16/2019: D as in discharge MTDD
== END 2019-08-16 14:30 | DRG 189 ==
LOC: ED → MEDSURG B 01:20
PROVIDERS: ADMIT Internal Medicine; ATTEND Internal Medicine
DX: R00.1 Bradycardia, unspecified; I51.7 Cardiomegaly; Z86.711 Personal history of pulmonary embolism; I50.9 Heart failure, unspecified; N18.3 Chronic kidney disease, stage 3 (moderate); J44.9 Chronic obstructive pulmonary disease, unspecified; M17.0 Bilateral primary osteoarthritis of knee; I10 Essential (primary) hypertension; F03.90 Unspecified dementia, unspecified severity, without behavioral disturbance, psychotic disturbance, mood disturbance, and anxiety; R06.02 Shortness of breath; G47.33 Obstructive sleep apnea (adult) (pediatric); Z79.899 Other long term (current) drug therapy; R53.1 Weakness; W19.XXXA Unspecified fall, initial encounter; D64.9 Anemia, unspecified; J96.00 Acute respiratory failure, unspecified whether with hypoxia or hypercapnia; R60.0 Localized edema; I48.91 Unspecified atrial fibrillation; R17 Unspecified jaundice; N39.0 Urinary tract infection, site not specified; D51.0 Vitamin B12 deficiency anemia due to intrinsic factor deficiency; I25.810 Atherosclerosis of coronary artery bypass graft(s) without angina pectoris; E87.6 Hypokalemia